=== PATIENT | male | born 1985 | race Caucasian/White ===

== ENCOUNTER 2017-11-14 21:57 | Emergency (ER) | payer SELFPAY ==
[2017-11-14 22:00] VITALS: BP 160/95; PULSE 80; RESP 18; TEMP 36.9; O2SAT 97; BMI 32.5
--- NOTE | 2017-11-14 22:08 | DI.RAD.S_ITS ---
PROCEDURE: XR ANKLE RT MIN 3V INDICATIONS: Injured right ankle sliding into base playing softball TECHNIQUE: 3 views of the ankle were acquired. COMPARISON: None. FINDINGS: Bones: No fractures or dislocations. Ankle mortise is normally aligned. Small cortical radiolucency in the medial margin of the lateral malleolus distally may represent a small erosion or subcortical cyst but does not have the appearance of an acute fracture. Soft tissues: No tibiotalar joint effusion. Achilles tendon appears normal. Prominent lateral soft tissue swelling. IMPRESSION: Lateral swelling, negative for fracture Dictated by: Michael Leblanc M.D. on 11/15/2017 at 7:58 Approved by: Michael Leblanc M.D. on 11/15/2017 at 8:02
--- NOTE | 2017-11-14 23:27 | ED.LOWEXIN ---
HPI - Extremity Injury (Lower) General Chief Complaint: Extremity Injury, Lower Stated Complaint: HURT RIGHT ANKLE Time Seen by Provider: 11/14/17 23:27 Source: patient Mode of arrival: ambulatory Limitations: no limitations History of Present Illness HPI Narrative: The patient initially rolled his right ankle yesterday, but was doing well. This evening at home he tripped over his cat, and rolled the ankle again. He now has ecchymoses, pain and swelling in the right ankle. He remains ambulatory. There is no numbness or weakness in the right foot. The right leg is otherwise normal. Related Data Home Medications Medication Instructions Recorded Confirmed ACETAMINOPHEN #0 10/30/11 sumatriptan [Imitrex] #0 11/12/15 Previous Rx's Medication Instructions Recorded ondansetron [Zofran ODT] 4 mg SUBLINGUAL Q4HP PRN #15 odt 11/12/15 oxycodone-acetaminophen [Percocet] 1 tab PO Q4HP PRN #15 tab 11/12/15 Allergies Allergy/AdvReac Type Severity Reaction Status Date / Time Penicillins [PENICILLINS] Allergy Unknown Verified 11/14/17 22:04 bee venom protein (honey bee) Allergy Anaphylaxis Verified 11/14/17 22:04 Review of Systems Constitutional Denies chills, Denies fever(s), Denies lethargy and Denies weakness Musculoskeletal Denies muscle weakness, Denies numbness and Denies tingling Integumentary/Breasts Denies rash, Denies wounds and Reports other (He has a contusion.) Neurologic Denies numbness, Denies tingling and Denies weakness [facility] Social History Smoking Status: Never smoker Exam Initial Vital Signs Initial Vital Signs: Vital Signs Temperature 98.5 F 11/14/17 22:00 Pulse Rate 80 11/14/17 22:00 Respiratory Rate 18 11/14/17 22:00 Blood Pressure 160/95 H 11/14/17 22:00 Pulse Oximetry 97 11/14/17 22:00 Skin General: no rashes or lesions noted and ecchymosis (Right ankle) Neuro General: alert, oriented x3, gait normal, no focal motor deficits and other (The right foot has normal motor and sensory findings.) Speech: speech normal Extrem General: full ROM, no clubbing, cyanosis or edema, no calf tenderness and other (Right ankle shows tenderness and edema around the right lateral malleolus. There is no palpable defect. There is no laxity in the ankle. There Is right ankle ecchymoses. The right foot is nontender. The right foot is neurovascularly intact.) Course Hospital Course: The patient was placed in a right ankle air splint by his nurse. He is ambulatory. Orders Ordered: ED Orders 11/14/17 22:08 XR ankle RT min 3V Stat Discontinued Medications Ibuprofen (Advil) 800 mg PO NOW ONE Stop: 11/14/17 23:36 Vital Signs - 8 hr 11/14/17 22:00 Temperature 98.5 F Pulse Rate 80 Respiratory Rate 18 Blood Pressure 160/95 H Pulse Oximetry 97 MDM - Extremity Injury (Lower) Imaging Data Right ankle x-ray:: My impression: No fracture seen. Discharge Plan Departure Patient Disposition: Home, Self-Care Clinical Impression: Right ankle sprain Instructions: Ankle Sprain Activity Restrictions/Additional Instructions: Advil 3 tablets every 6 hr as needed for pain. Ice the ankle frequently for the next 2 days. Use the splint as needed. Prescriptions: No Action ACETAMINOPHEN Qty: 0 RF: 0 sumatriptan [Imitrex] 5 MG spray,non-aerosol Qty: 0 RF: 0 oxycodone-acetaminophen [Percocet] 5 MG/325 MG tablet 1 tab PO Q4HP PRNQty: 15 RF: 0 ondansetron [Zofran ODT] 4 MG tablet,disintegrating 4 mg Sublingual Q4HP PRNQty: 15 RF: 0
[2017-11-14] MEDS: IBUPROFEN 400 MG TABLET 800 MG PO (23:42)
[2017-11-14 23:53] VITALS: BP 155/80; PULSE 80; RESP 12; TEMP 37.1; O2SAT 98
== END 2017-11-14 23:53 | disposition home or self-care (01) ==
PROVIDERS: Emergency Provider Emergency Medicine; Family Provider Internal Medicine
DX: S93.401A Sprain of unspecified ligament of right ankle, initial encounter (principal); W01.0XXA Fall on same level from slipping, tripping and stumbling without subsequent striking against object, initial encounter
CPT/HCPCS: 29540; 73610; 99283

== ENCOUNTER → 2018-10-06 14:00 | Outpatient (CLI) | payer OTHER, SELFPAY ==
[2018-10-06 16:04] LABS: Alanine Aminotransferase 69 IU/L (21-72); Albumin 4.9 g/dL (3.5-5.0); Albumin Globulin Ratio 1.7 (1.0-2.8); Alkaline Phosphatase 50 U/L (38-126); Aspartate Aminotransferase 31 IU/L (17-59); Bilirubin Total 1.1 mg/dL (0.2-1.3); Blood Urea Nitrogen 16 mg/dL (9-20); Calcium 10.6 mg/dL (8.4-10.2); Carbon Dioxide 27 mmol/L (22-32); Chloride 103 mmol/L (98-107); Cholesterol 205 mg/dL (140-199); Estimated Glomerular Filt Rate > 60.0 mL/min (>60); Globulin 2.9 g/dL (1.7-4.1); Glucose 92 mg/dL (70-100); HDL Cholesterol 42 mg/dL (40-60); HEMOLYSIS < 15 (0-50); LDL Cholesterol Calculated 101 mg/dL (<100); Potassium 4.2 mmol/L (3.4-5.1); Sodium 142 mmol/L (137-145); Total Protein 7.8 g/dL (6.3-8.2); Triglycerides 308 mg/dL (35-150)
== END ==
PROVIDERS: Visit Provider Internal Medicine
DX: I10 Essential (primary) hypertension (principal)
CPT/HCPCS: 36415; 80053; 80061

== ENCOUNTER → 2019-01-29 17:54 | Outpatient (CLI) | payer OTHER, SELFPAY ==
--- NOTE | 2019-01-29 17:59 | DI.MRI.S_ITS ---
PROCEDURE: MR THORACIC SPINE WO CON INDICATIONS: mid back pain TECHNIQUE: Noncontrast sagittal T1 spine echo and T2 fast spin echo, sagittal STIR, axial T1 and T2 fast spin echo through the thoracic spine. COMPARISON: None. FINDINGS: Image quality: Excellent. Alignment and Curvature: There is normal bony alignment. Bone Marrow: Marrow is of normal overall signal. No acute vertebral body compression fractures. Spinal Cord: Visualized spinal cord is normal in size and signal. Paraspinous Soft Tissues: No paravertebral masses. Miscellaneous: There is shallow central posterior disc extrusion at T9-T10 which mildly indents on the thecal sac. Without resulting in canal stenosis. There are no other disc protrusions or extrusions. There is no canal stenosis. There is no foraminal narrowing. IMPRESSION: 1. Mild central posterior disc extrusion at T9-T10 with mild indentation on the ventral cord without canal stenosis. 2. Otherwise unremarkable thoracic spine MRI. Dictated by: Adin Joseph M.D. on 01/30/2019 at 12:52 Approved by: Adin Joseph M.D. on 01/30/2019 at 12:57
== END ==
PROVIDERS: PCP Internal Medicine; Visit Provider Registered Nurse
DX: M51.14 Intervertebral disc disorders with radiculopathy, thoracic region (principal); G89.29 Other chronic pain
CPT/HCPCS: 72146

== ENCOUNTER 2019-03-22 08:47 | Outpatient (CLI) | payer OTHER, SELFPAY ==
[2019-03-22] VITALS (8 sets, daily range): BP systolic 143–153; BP diastolic 90–104; PULSE 68–86; RESP 16–18; TEMP 36.9; O2SAT 95–99
--- NOTE | 2019-03-22 08:49 | DI.RAD.S_ITS ---
PROCEDURE: PAIN C/T INTERLAMINAR INJECT INDICATIONS: RADICULOPATHY FINDINGS: Fluoroscopic spot filming was performed to verify placement of spinal needles at the T9-T10 level(s), as labeled on the films. Appropriate location(s) of the needle tip(s) was confirmed by injection of iodinated contrast. IMPRESSION: Fluoroscopy for pain management. Dictated by: Brian Zhao M.D. on 03/22/2019 at 11:28 Approved by: Brian Zhao M.D. on 03/22/2019 at 11:28
--- NOTE | 2019-03-22 08:49 | DI.RAD.S_ITS ---
PROCEDURE: XR THORACIC SPINE 3V INDICATIONS: mid back pain TECHNIQUE: 3 views of the thoracic spine were acquired. COMPARISON: [facility], MR, MR THORACIC SPINE WO CON, 01/29/2019, 18:22. FINDINGS: Bones: No fractures or dislocations. No suspicious bony lesions. Mild degenerative disease at T8-T9, T9-T10, T10-T11 and T11-T12. 12 pairs of ribs are noted, and appear intact where visualized. Old right 11th rib fracture is noted. Soft tissues: No paravertebral stripe thickening. IMPRESSION: Mild degenerative disc disease. Dictated by: Brian Zhao M.D. on 03/22/2019 at 11:39 Approved by: Brian Zhao M.D. on 03/22/2019 at 11:41
[2019-03-22] MEDS: fentaNYL 100 MCG/2 ML INJ 50 MCG IV (09:28)
[2019-03-22] MEDS: MIDAZOLAM 5 MG/5 ML VIAL IV (09:28)
[2019-03-22] MEDS: LIDOCAINE 1% 20 ML 5 ML INJ (09:33)
[2019-03-22] MEDS: IOPAMIDOL 15 ML VIAL 3 ML INJ (09:33)
[2019-03-22] MEDS: DEXAMETHASONE 10 MG/ML VIAL 30 MG INJ (09:34)
--- NOTE | 2019-03-22 09:44 | PC.NURSE ---
ASSISTING PT OFF TABLE AND TRANSPORTING TO POST PROC AREA IN STABLE CONDITION. PASSING RN CARE OF PT OFF TO FRANKI Powell RN. VERSED AND FENTANYL PREPARED AND ADMINISTERED BY THIS RN. ALL OTHER MEDS PREPARED AND ADMINISTERED BY DR. MAHAJAN.
--- NOTE | 2019-03-22 09:48 | P.PCN_ITS ---
Procedures Date/Time Date of procedure: 03/22/19 Time of procedure: 09:49 General Procedure description: Preop diagnosis: Thoracic stenosis with HNP Postprocedure diagnosis: Thoracic stenosis with HNP Physician: Miguel Oakes D.O. Indications: Pilo is referred by Dr. Enriquez for treatment of thoracic DDD/DJD with radiculopathy Description of procedure: Fluoroscopic guided, contrast controlled T9/10 translaminar epidural steroid inj ection with conscious sedation. Following review of allergy review potential side effects and complications, including, but not necessarily limited to, infection, allergic reaction, local tissue breakdown, temporary as well as permanent nerve injury, stroke, paralysis and possible , the patient indicated that they understood and agreed to proceed. An informed consent document was signed by the patient, witnessed by the nurse, and placed in the patient's chart. Additionally other treatment options including modalities, medications and physical therapy were reviewed with the patient. After review of previous anaesthesic history and IV conscious sedation the patient was deemed safe to proceed with todays procedure with IV conscious sedation as ASA class II designation. Safety time-out was performed to confirm patient ID, procedure to be performed and site of procedure. IV sedation was accomplished with a combination of 2mg of Versed and 50mcg of Fentanyl administered by the RN after DO order, titrated to patient comfort during the course of the procedure while the patient remained responsive to all verbal commands In the prone position, following sterile prep and drape of the thoracic region the T9/10 translaminar space was identified fluoroscopically. The skin was anesthetized via 25 gauge 20 mm sheath with 1% lidocaine solution. At this point a 20 gauge epidural needle was atraumatically introduced and advanced under fluoroscopic guidance into the region of the T9/10 translaminar space depth was confirmed on lateral view. Radiographic data, including multiple fluoroscopic views of the thoracic spine, reveals spinal needle at the T9/10 translaminar space. Lateral views then showed the placement of the needle in the epidural space. Subsequent view show contrast material flowing superiorly and inferiorly in the epidural space. No vascular or intrathecal uptake is observed. At this point using loss of resistance technique with saline and the epidural space was entered. This was confirmed followed negative aspiration and injection of approximately 1.5 cc of Isovue 200 showed excellent epidural flow without vascular or intrathecal uptake. At this point, 1 cc of 1% lidocaine solution was admitted as a test dose and the patient was observed for an appropriate period of time without signs or symptoms of complications, including abdominal pain, shortness of breath, bilateral upper and lower extremity weakness, nausea and vomiting, prior to steroid injection. Subsequently, 3cc or 30mg of dexamethasone was then injected without incident. The patient tolerated the procedure well without signs of complications and subsequently was transferred to the recovery room for further monitoring. The patient was then transferred to the recovery area with their observed for an appropriate time after the injection. Patient reported a VAS score of 7 prior to the procedure and postprocedure VAS of 2. Total fluoroscopy time: 56.3 sec Total conscious sedation time: 24 min Miguel Oakes D.O. Complications: none
--- NOTE | 2019-03-22 10:24 | PC.NURSE ---
Post procedure discharge note: Patient arrived at 0949. Handoff report received from Jami Noel RN. Patient awake and alert. Able to transfer from wheelchair to recliner independently. Discharge instructions reviewed with good understanding. Discharged to home with significant other. Ambulated to car at 1007
== END 2019-03-22 10:07 | disposition home or self-care (01) ==
LOC: RAD 08:48
PROVIDERS: PCP Internal Medicine; Visit Provider Physical Medicine & Rehabilitation
DX: M51.14 Intervertebral disc disorders with radiculopathy, thoracic region (principal); M48.04 Spinal stenosis, thoracic region; M47.24 Other spondylosis with radiculopathy, thoracic region
CPT/HCPCS: 62321; 72072; 99152; J1100; J2250; J3010

== ENCOUNTER → 2019-04-05 11:08 | Outpatient (CLI) | payer OTHER, SELFPAY ==
[2019-04-05 12:32] LABS: Erythrocyte Sedimentation Rate 4 MM/HR (0-15)
[2019-04-05 12:40] LABS: C-Reactive Protein Quant < 0.5 mg/dL (<1.0)
[2019-04-07 13:45] LABS: HLA B27 NEGATIVE (Negative)
== END ==
PROVIDERS: PCP Internal Medicine; Visit Provider Registered Nurse
DX: M54.14 Radiculopathy, thoracic region (principal); G89.29 Other chronic pain; M54.6 Pain in thoracic spine
CPT/HCPCS: 36415; 81374; 85651; 86140

== ENCOUNTER → 2020-03-17 14:37 | Outpatient (CLI) | payer OTHER, SELFPAY ==
[2020-03-17 17:05] LABS: COVID19 -Nasal RAPID POSITIVE (Negative)
== END ==
PROVIDERS: PCP Family Medicine; Visit Provider Physician Assistant
DX: U07.1 COVID-19 (principal)
CPT/HCPCS: 87635

== ENCOUNTER → 2020-04-29 14:55 | Outpatient (CLI) | payer OTHER, SELFPAY ==
[2020-04-29 15:57] LABS: COVID19 -Nasal RAPID Negative (Negative)
== END ==
PROVIDERS: PCP Family Medicine; Referring Provider Physical Medicine & Rehabilitation; Visit Provider Physical Medicine & Rehabilitation
DX: Z20.822 Contact with and (suspected) exposure to COVID-19 (principal)
CPT/HCPCS: 87635; C9803

== ENCOUNTER 2020-05-01 07:33 | Outpatient (CLI) | payer OTHER, SELFPAY ==
[2020-05-01] VITALS (9 sets, daily range): BP systolic 143–161; BP diastolic 80–101; PULSE 71–85; RESP 10–24; TEMP 36.2; O2SAT 92–99
--- NOTE | 2020-05-01 07:57 | DI.RAD.S_ITS ---
PROCEDURE: PAIN C/T TRANFORAMINAL INJECT INDICATIONS: SPONDYLOSIS COMPARISON: [facility], , PAIN C/T INTERLAMINAR INJECT, 03/22/2019, 9:28. FINDINGS: Fluoroscopic spot filming was performed to verify placement of a spinal needle at the T9-T10 level, as labeled on the films. Appropriate location of the needle tip was confirmed by injection of iodinated contrast. IMPRESSION: Intraprocedural examination within normal limits. Dictated by: Grover Calloway M.D. on 05/01/2020 at 10:26 Approved by: Grover Calloway M.D. on 05/01/2020 at 10:26
[2020-05-01] MEDS: fentaNYL 100 MCG/2 ML INJ 50 MCG IV (08:25)
[2020-05-01] MEDS: MIDAZOLAM 5 MG/5 ML VIAL IV (08:25)
[2020-05-01] MEDS: BUPIVACAINE 0.25% (PF) VIAL 2 ML INJ (08:29)
[2020-05-01] MEDS: DEXAMETHASONE 10 MG/ML VIAL 30 MG INJ (08:31)
[2020-05-01] MEDS: IOPAMIDOL 15 ML VIAL 3 ML INJ (08:31)
--- NOTE | 2020-05-01 08:41 | P.PCN_ITS ---
Date/Time/Diagnoses Date of procedure: 05/01/20 Time of procedure: 08:41 Pre-procedure diagnosis: 1. FORAMINAL STENOSIS WITH LE SYMPTOMS Post-procedure diagnosis: same Procedure Notes Procedure: 1. FLUOROSCOPICALLY GUIDED CONTRAST CONTROLLED TRANSFORAMINAL EPIDURAL STEROID INJECTION - LEFT T9/T10 TFESI Indications: Pilo is referred by Dr. Joyner for treatment of Foraminal Stenosis with Right thoracic Symptoms Physician: iMguel Oakes Total Fluoroscopy time (seconds): 13 Total sedation minutes: 11 Complications: none Procedure in detail & Post-procedure care: FINDINGS Foraminal Nerve Root Compression secondary to disc disease and facet hypertrophy DESCRIPTION OF PROCEDURE Following review of allergy and review of potential side effects and complications, including, but not necessarily limited to, infection, allergic reaction, local tissue breakdown, stroke, temporary or permanent nerve injury, paralysis, and possible , the patient indicated that the patient understood and agreed to proceed. An informed consent document was signed by the patient, witnessed by a nurse, and placed in the patient's chart. Additionally, other treatment options including medications, modalities, and physical therapy were reviewed with the patient. After review of previous anaesthesic history and IV conscious sedation the patient was deemed safe to proceed with today?s procedure with IV conscious sedation as ASA class II designation. Safety time-out was performed to confirm patient ID, procedure to be performed and site of procedure. IV sedation was accomplished with a combination of 4mg of Versed and 50mcg of Fentanyl was administered by the RN after DO order, titrated to patient comfort during the course of the procedure while the patient remained responsive to all verbal commands In the prone position following sterile prep and drape of the lumbar region, the right T8-9 posterior neuroforamen was identified fluoroscopically. The skin was anesthetized via a 25-gauge 1.5-inch needle with 1% lidocaine solution. At this point, a 25-gauge 3.5-inch spinal needle was atraumatically introduced and advanced under fluoroscopic guidance through the posterior left T9/T10 neuroforamen to approximately the anterior aspect of the canal. Depth was confirmed on lateral view. Following negative aspiration, injection of approximately 1.5cc of Isovue 200 under live fluoroscopy in the AP view confirmed excellent flow along the nerve root, into the epidural space without vascular or intrathecal uptake observed Radiological data, including multiple fluoroscopic views reveal the needle placement in the left T9/T10 posterior neuroforamen. Subsequent views show flow of contrast material flowing superiorly and inferiorly along the nerve root confirming epidural flow. Subsequently, a test dose of 1.5cc of 1% lidocaine solution was administered and patient was observed for signs or symptoms of complications, including abdominal pain, shortness of breath, bilateral upper or lower extremity weakness, nausea and vomiting, prior to steroid injection. At this point, a total of 3cc or 30mg of dexamethasone was injected without incident. The procedure tolerated the procedure well without signs or symptoms of complications prior to transfer to the recovery area continued monitoring without incident. The patient was then transferred to the recovery area where they were observed for an appropriate time after the injection. The patient reported a VAS score of 7 prior to the procedure and a post- procedure VAS of 0. POST OP INSTRUCTIONS The patient was provided a Pain Log to continue to record their response to the target-specific procedure prior to follow-up visit with their referring physician. Additionally, specific post-injection care instructions and a contact number to our office were provided if concerns arise regarding possible complications associated with the procedure are suspected.
== END 2020-05-01 09:04 | disposition home or self-care (01) ==
PROVIDERS: PCP Family Medicine; Referring Provider Family Medicine; Visit Provider Physical Medicine & Rehabilitation
DX: M51.24 Other intervertebral disc displacement, thoracic region (principal); M47.814 Spondylosis without myelopathy or radiculopathy, thoracic region
CPT/HCPCS: 64479; 99152; J1100; J2250; J3010

== ENCOUNTER → 2020-05-26 08:22 | Outpatient (CLI) | payer OTHER, SELFPAY ==
--- NOTE | 2020-05-26 08:24 | DI.RAD.S_ITS ---
PROCEDURE: XR THORACIC SPINE 3V INDICATIONS: THORACIC PAIN TECHNIQUE: 3 views of the thoracic spine were acquired. COMPARISON: [facility], CR, XR THORACIC SPINE 3V, 03/22/2019, 9:09. FINDINGS: Bones: No fractures or dislocations. No suspicious bony lesions. 12 pairs of ribs are noted, and appear intact where visualized. There is only a small degree of degenerative disc height reduction along the thoracic spine best seen at the middle 3rd. No prior compression fracture suspected. Soft tissues: No paravertebral stripe thickening. IMPRESSION: Mild degenerative disc disease without prior compression fracture, involving the thoracic spine. No subluxation seen. Dictated by: Tj De M.D. on 05/26/2020 at 9:04 Approved by: Tj De M.D. on 05/26/2020 at 9:05
== END ==
PROVIDERS: PCP Family Medicine; Referring Provider Physical Medicine & Rehabilitation; Visit Provider Physical Medicine & Rehabilitation
DX: M51.14 Intervertebral disc disorders with radiculopathy, thoracic region (principal); G89.29 Other chronic pain
CPT/HCPCS: 72072

== ENCOUNTER → 2020-06-27 06:42 | Outpatient (CLI) | payer OTHER, SELFPAY ==
--- NOTE | 2020-06-27 06:42 | DI.MRI.S_ITS ---
PROCEDURE: MR LUMBAR SPINE WO CON INDICATIONS: LUMBAR RADICULOPATHY TECHNIQUE: Noncontrast sagittal T1 spin echo and T2 fast echo, sagittal STIR, axial T1 and T2 fast spin echo through the lumbar spine. In cases with scoliosis, additional coronal T2 fast spin echo may be performed. COMPARISON: None. FINDINGS: Image quality: Excellent. Alignment and Curvature: There is normal bony alignment. Bone Marrow: No fracture. Multilevel degenerative endplate sclerosis and spurring. Diffuse facet arthropathy. Spinal Cord: Conus medullaris terminates at the L1-L2 level. Visualized cord demonstrates normal signal and size. Paraspinous Soft Tissues: No paravertebral masses. Subcentimeter Tarlov cyst seen at the S2 level of the sacrum. T12-L1: Normal appearance. L1-L2: Normal appearance. L2-L3: Normal appearance. L3-L4: Normal appearance. L4-L5: No canal foraminal stenosis. Minimal bilateral foraminal narrowing. L5-S1: No definite canal stenosis. Mild bilateral foraminal narrowing with questionable nerve root compression. IMPRESSION: Overall, no high-grade canal stenosis. Low-grade bilateral foraminal narrowing as above . Dictated by: José Miguel Friedman M.D. on 06/27/2020 at 8:59 Approved by: José Miguel Friedman M.D. on 06/27/2020 at 9:08
== END ==
PROVIDERS: PCP Family Medicine; Referring Provider Physical Medicine & Rehabilitation; Visit Provider Physical Medicine & Rehabilitation
DX: M54.16 Radiculopathy, lumbar region (principal)
CPT/HCPCS: 72148

== ENCOUNTER → 2020-07-24 09:42 | Outpatient (CLI) | payer OTHER, SELFPAY ==
[2020-07-24] MEDS: COVID-19 VACC #1, MRNA(MOD) 100 MCG/0.5 ML VIAL IM (09:47)
== END ==
PROVIDERS: PCP Family Medicine; Visit Provider Internal Medicine
DX: Z23 Encounter for immunization (principal)
CPT/HCPCS: 0011A; 91301

== ENCOUNTER → 2020-08-05 08:46 | Outpatient (CLI) | payer OTHER, SELFPAY ==
[2020-08-05 14:59] LABS: COVID19 -Nasal RAPID Negative (Negative)
== END ==
PROVIDERS: PCP Family Medicine; Visit Provider Physical Medicine & Rehabilitation
DX: Z20.822 Contact with and (suspected) exposure to COVID-19 (principal)
CPT/HCPCS: 87635; C9803

== ENCOUNTER 2020-08-07 09:18 | Outpatient (CLI) | payer OTHER, SELFPAY ==
[2020-08-07] VITALS (8 sets, daily range): BP systolic 152–181; BP diastolic 76–110; PULSE 14–98; RESP 14–20; TEMP 36.4; O2SAT 93–99
--- NOTE | 2020-08-07 09:21 | DI.RAD.S_ITS ---
PROCEDURE: PAIN C/T INTERLAMINAR INJECT INDICATIONS: SPONDYLOSIS COMPARISON: [facility], , PAIN C/T INTERLAMINAR INJECT, 03/22/2019, 9:28. FINDINGS: Fluoroscopic spot filming was performed to verify placement of spinal needles at the T9-T10 level(s), as labeled on the films. Appropriate location(s) of the needle tip(s) was confirmed by injection of iodinated contrast. IMPRESSION: Successful needle tip localization for dorsal interlaminar epidural steroid injection at the T9-T10 level. Dictated by: Tj De M.D. on 08/12/2020 at 8:22 Approved by: Tj De M.D. on 08/12/2020 at 8:27
[2020-08-07] MEDS: fentaNYL 100 MCG/2 ML INJ 50 MCG IV (10:00)
[2020-08-07] MEDS: MIDAZOLAM 5 MG/5 ML VIAL IV (10:05)
[2020-08-07] MEDS: IOPAMIDOL 15 ML VIAL 3 ML INJ (10:07)
[2020-08-07] MEDS: DEXAMETHASONE 10 MG/ML VIAL 30 MG INJ (10:07)
[2020-08-07] MEDS: BUPIVACAINE 0.25% (PF) VIAL 2 ML INJ (10:08)
--- NOTE | 2020-08-07 10:18 | PM.PROC.IR.1 ---
Date/Time/Diagnoses Date of procedure: 08/07/20 Time of procedure: 10:18 Pre-procedure diagnosis: Thoracic stenosis with HNP Post-procedure diagnosis: same Procedure Notes Procedure: Fluoroscopic guided, contrast controlled T9/10 translaminar epidural steroid injection with conscious sedation. Indications: Pilo is referred by Dr. Joyner for treatment of thoracic DDD/DJD with radiculopathy Physician: Miguel Oakes Total Fluoroscopy time (seconds): 16 Total sedation minutes: 14 Complications: none Procedure in detail & Post-procedure care: DESCRIPTION OF PROCEDURE Fluoroscopic guided, contrast controlled T9/10 translaminar epidural steroid injection with conscious sedation. Following review of allergy review potential side effects and complications, including, but not necessarily limited to, infection, allergic reaction, local tissue breakdown, temporary as well as permanent nerve injury, stroke, paralysis and possible , the patient indicated that they understood and agreed to proceed. An informed consent document was signed by the patient, witnessed by the nurse, and placed in the patient's chart. Additionally other treatment options including modalities, medications and physical therapy were reviewed with the patient. After review of previous anaesthesic history and IV conscious sedation the patient was deemed safe to proceed with today's procedure with IV conscious sedation as ASA class II designation. Safety time-out was performed to confirm patient ID, procedure to be performed and site of procedure. IV sedation was accomplished with a combination of 5mg of Versed and 50mcg of Fentanyl administered by the RN after DO order, titrated to patient comfort during the course of the procedure while the patient remained responsive to all verbal commands In the prone position, following sterile prep and drape of the thoracic region the T9/10 translaminar space was identified fluoroscopically. The skin was anesthetized via 25 gauge 1.5inch needle with 1% lidocaine solution. At this point a 22gauge epidural needle was atraumatically introduced and advanced under fluoroscopic guidance into the region of the T9/10 translaminar space depth was confirmed on lateral view. Radiographic data, including multiple fluoroscopic views of the thoracic spine, reveals spinal needle at the T9/10 translaminar space. Lateral views then showed the placement of the needle in the epidural space. Subsequent view show contrast material flowing superiorly and inferiorly in the epidural space. No vascular or intrathecal uptake is observed. At this point using loss of resistance technique with saline and the epidural space was entered. This was confirmed followed negative aspiration and injection of approximately 1.5cc of Isovue 200 showed excellent epidural flow without vascular or intrathecal uptake. At this point, 1 cc of 1% lidocaine solution was admitted as a test dose and the patient was observed for an appropriate period of time without signs or symptoms of complications, including abdominal pain, shortness of breath, bilateral upper and lower extremity weakness, nausea and vomiting, prior to steroid injection. Subsequently, 3cc or 30mg of dexamethasone was then injected without incident. The patient tolerated the procedure well without signs of complications and subsequently was transferred to the recovery room for further monitoring. The patient was then transferred to the recovery area with their observed for an appropriate time after the injection. Patient reported a VAS score of 7 prior to the procedure and post-procedure VAS of 2.
== END 2020-08-07 10:36 | disposition home or self-care (01) ==
LOC: RAD 09:20
PROVIDERS: PCP Family Medicine; Referring Provider Physical Medicine & Rehabilitation; Visit Provider Physical Medicine & Rehabilitation
DX: M48.04 Spinal stenosis, thoracic region (principal); M51.14 Intervertebral disc disorders with radiculopathy, thoracic region; M47.24 Other spondylosis with radiculopathy, thoracic region
CPT/HCPCS: 62321; 99152; J1100; J2250; J3010

== ENCOUNTER → 2020-08-21 08:02 | Outpatient (CLI) | payer OTHER, SELFPAY ==
[2020-08-21] MEDS: COVID-19 VACC #2, MRNA(MOD) 100 MCG/0.5 ML VIAL IM (08:09)
== END ==
PROVIDERS: PCP Family Medicine; Visit Provider Internal Medicine
DX: Z23 Encounter for immunization (principal)
CPT/HCPCS: 0012A; 91301

== ENCOUNTER → 2020-11-03 08:06 | Outpatient (CLI) | payer OTHER, SELFPAY ==
[2020-11-03 12:38] LABS: COVID19 -Nasal RAPID Negative (Negative)
== END ==
PROVIDERS: PCP Family Medicine; Visit Provider Physical Medicine & Rehabilitation
DX: Z20.822 Contact with and (suspected) exposure to COVID-19 (principal)
CPT/HCPCS: 87635; C9803

== ENCOUNTER 2020-11-04 08:47 | Outpatient (CLI) | payer OTHER, SELFPAY ==
[2020-11-04] VITALS (9 sets, daily range): BP systolic 143–157; BP diastolic 82–98; PULSE 70–88; RESP 13–19; TEMP 36.6; O2SAT 96–98
--- NOTE | 2020-11-04 08:48 | DI.RAD.S_ITS ---
PROCEDURE: PAIN C/T FACET INJ/BLK 1ST L INDICATIONS: THORACIC PAIN COMPARISON: [facility], MR, MR LUMBAR SPINE WO CON, 06/27/2020, 7:07. [facility], CR, XR THORACIC SPINE 3V, 05/26/2020, 8:33. FINDINGS: Fluoroscopic spot filming was performed to verify placement of spinal needles at the right T9, T10 and T11 level(s), as labeled on the films. Appropriate location(s) of the needle tip(s) was confirmed by injection of iodinated contrast. IMPRESSION: Fluoroscopy for pain management. Dictated by: Brian Zhao M.D. on 11/04/2020 at 14:58 Approved by: Brian Zhao M.D. on 11/04/2020 at 15:13
[2020-11-04] MEDS: MIDAZOLAM 5 MG/5 ML VIAL IV (09:18)
[2020-11-04] MEDS: fentaNYL 100 MCG/2 ML INJ 50 MCG IV (09:18)
[2020-11-04] MEDS: BUPIVACAINE 0.5% (PF) VIAL 5 ML SUBCUT (09:26)
[2020-11-04] MEDS: DEXAMETHASONE 10 MG/ML VIAL 30 MG INJ (09:27)
[2020-11-04] MEDS: IOPAMIDOL 15 ML VIAL 3 ML INJ (09:27)
--- NOTE | 2020-11-04 09:45 | P.PCN_ITS ---
Date/Time/Diagnoses Date of procedure: 11/04/20 Time of procedure: 09:45 Pre-procedure diagnosis: 1. FACET ARTHROPATHY 2. AXIAL NECK PAIN Post-procedure diagnosis: same Procedure Notes Procedure: 1. FLUOROSCOPICALLY GUIDED, CONTRAST-CONTROLLED RIGHT C5/6 AND C6/7 FACET JOINT INJECTIONS WITH CONSCIOUS SEDATION. Indications: Pilo is referred by Dr. Joyner for treatment of Thoracic Pain Physician: Miguel Oakes Total Fluoroscopy time (seconds): 12 Total sedation minutes: 17 Complications: none Procedure in detail & Post-procedure care: DESCRIPTION OF PROCEDURE Fluoroscopically guided, contrast-controlled right T9, T10 and T11 costovertebral joint injections with conscious sedation. Following review of allergy and review of potential side effects and complications, including, but not necessarily limited to, infection, allergic reaction, local tissue breakdown, stroke, temporary or permanent nerve injury and paralysis, the patient indicated that the patient understood and agreed to proceed. An informed consent document was signed by the patient, witnessed by a nurse, and placed in the patient's chart. Additionally, other treatment options including medications, modalities, and physical therapy were reviewed with the patient. After review of previous anaesthesic history and IV conscious sedation the patient was deemed safe to proceed with today?s procedure with IV conscious sedation as ASA class II designation. Safety time-out was performed to confirm patient ID, procedure to be performed and site of procedure. IV sedation was accomplished with a combination of 3mg of Versed and 50mcg of Fentanyl was administered by the RN after DO order, titrated to patient comfort during the course of the procedure while the patient remained responsive to all verbal commands. In the prone position, following sterile prep and drape of the cervical spine region, the posterior aspect of the right T9, T10 and T11 joints were identified fluoroscopically. The skin was anesthetized via a 25-gauge 1.5-inch needle with 1% lidocaine solution into the corresponding costovertebral joints. At this point, a 25-gauge 2.5-inch spinal needle was atraumatically introduced and advanced under fluoroscopic guidance into the corresponding joints. Following negative aspiration, injections of approximately 0.2-cc of Isovue 200 confirmed interarticular placement without vascular uptake. At this point, a total of 1 cc including 0.5 cc or 5 mg of dexamethasone combined with 0.5 cc of 1% lidocaine solution was injected without complication into each of the corresponding joints. The procedure tolerated the procedure well without signs or symptoms of complications prior to transfer to the recovery area continued monitoring without incident. The patient was then transferred to the recovery area where they were observed for an appropriate period of time after the injection. The patient reported a VAS score of 7 prior to the procedure and a post- procedure VAS of 0. POST OP INSTRUCTIONS They were provided a Pain Log to continue to record their response to the target-specific procedure prior to their follow-up visit with their referring physician. Additionally, specific post-injection care instructions and a contact number to our office were provided if concerns arise regarding possible complications associated with the procedure are suspected.
== END 2020-11-04 09:52 | disposition home or self-care (01) ==
LOC: RAD 08:47
PROVIDERS: PCP Family Medicine; Referring Provider Physical Medicine & Rehabilitation; Visit Provider Physical Medicine & Rehabilitation
DX: M47.814 Spondylosis without myelopathy or radiculopathy, thoracic region (principal); M54.6 Pain in thoracic spine
CPT/HCPCS: 64490; 64491; 64492; 99152; J1100; J2250; J3010

== ENCOUNTER → 2021-02-23 10:15 | Outpatient (CLI) | payer OTHER, SELFPAY ==
[2021-02-23 15:04] LABS: COVID19 -Nasal RAPID Negative (Negative)
== END ==
PROVIDERS: PCP Family Medicine; Referring Provider Physical Medicine & Rehabilitation; Visit Provider Physical Medicine & Rehabilitation
DX: Z20.822 Contact with and (suspected) exposure to COVID-19 (principal)
CPT/HCPCS: 87635; C9803

== ENCOUNTER 2021-02-24 08:48 | Outpatient (CLI) | payer OTHER, SELFPAY ==
[2021-02-24] VITALS (8 sets, daily range): BP systolic 136–182; BP diastolic 100–124; PULSE 80–94; RESP 9–114; TEMP 36.1; O2SAT 95–100
--- NOTE | 2021-02-24 08:50 | DI.RAD.S_ITS ---
PROCEDURE: PAIN C/T FACET INJ/BLK 1ST L INDICATIONS: SPONDYLOSIS COMPARISON: [facility], , PAIN C/T FACET INJ/BLK 1ST L, 11/04/2020, 9:25. FINDINGS: Fluoroscopic spot filming was performed to verify placement of spinal needles at the right T9-T10, T10-T11 and T11-T12 level(s), as labeled on the films. Appropriate location(s) of the needle tip(s) was confirmed by injection of iodinated contrast. IMPRESSION: Access needles positioned for right T9, T10 and T11 medial branch block. Dictated by: Magali Steele MD, PhD on 02/24/2021 at 9:56 Approved by: Magali Steele MD, PhD on 02/24/2021 at 9:58
[2021-02-24] MEDS: MIDAZOLAM 5 MG/5 ML VIAL IV (09:33)
[2021-02-24] MEDS: fentaNYL 100 MCG/2 ML INJ 50 MCG IV (09:33)
[2021-02-24] MEDS: IOPAMIDOL 15 ML VIAL 3 ML INJ (09:41)
[2021-02-24] MEDS: DEXAMETHASONE 10 MG/ML VIAL 30 MG INJ (09:42)
--- NOTE | 2021-02-24 09:45 | P.PCN_ITS ---
Date/Time/Diagnoses Date of procedure: 02/24/21 Time of procedure: 09:45 Procedure Notes Procedure: Post-procedure diagnosis:?same Procedure Notes Procedure: 1.? FLUOROSCOPICALLY GUIDED, CONTRAST-CONTROLLED RIGHT T9, T10 and T11 FACET JOINT INJECTIONS WITH CONSCIOUS SEDATION. Indications: Pilo is referred by Dr. Joyner for treatment of Thoracic Pain Physician:?Miguel Oakes Complications:?none Procedure in detail & Post-procedure care: DESCRIPTION OF PROCEDURE Fluoroscopically guided, contrast-controlled right T9, T10 and T11 facet joint injections with conscious sedation. Following review of allergy and review of potential side effects and complications, including, but not necessarily limited to, infection, allergic reaction, local tissue breakdown, stroke, temporary or permanent nerve injury and paralysis, the patient indicated that the patient understood and agreed to proceed.? An informed consent document was signed by the patient, witnessed by a nurse, and placed in the patient's chart.? Additionally, other treatment options including medications, modalities, and physical therapy were reviewed with the patient.? After review of previous anaesthesic history and IV conscious sedation the nader ent was deemed safe to proceed with today?s procedure with IV conscious sedation as ASA class II designation. Safety time-out was performed to confirm patient ID, procedure to be performed and site of procedure. IV sedation was accomplished with a combination of 3mg of Versed and 50mcg of Fentanyl was administered by the RN after DO order, titrated to patient comfort during the course of the procedure while the patient remained responsive to all verbal commands. In the prone position, following sterile prep and drape of the cervical spine region, the posterior aspect of the right T9, T10 and T11 joints were identified fluoroscopically.? The skin was anesthetized via a 25-gauge 1.5-inch needle with 1% lidocaine solution into the corresponding costovertebral joints.? At this point, a 25-gauge 2.5-inch spinal needle was atraumatically introduced and advanced under fluoroscopic guidance into the corresponding joints.? Following negative aspiration, injections of approximately 0.2-cc of Isovue 200 confirmed interarticular placement without vascular uptake.? At this point, a total of 1 cc including 0.5 cc or 5 mg of dexamethasone combined with 0.5 cc of 1% lidocaine solution was injected without complication into each of the corresponding joints.? The procedure tolerated the procedure well without signs or symptoms of complications prior to transfer to the recovery area continued monitoring without incident.? The patient was then transferred to the recovery area where they were observed for an appropriate period of time after the injection.? The patient reported a VAS score of 7 prior to the procedure and a post- procedure VAS of 0.? POST OP INSTRUCTIONS They were provided a Pain Log to continue to record their response to the target-specific procedure prior to their follow-up visit with their referring physician.? Additionally, specific post-injection care instructions and a contact number to our office were provided if concerns arise regarding possible complications associated with the procedure are suspected. Total Fluoroscopy time (seconds): 8 Total sedation minutes: 6
[2021-02-24] MEDS: BUPIVACAINE 0.25% (PF) VIAL 2 ML INJ (09:47)
== END 2021-02-24 10:08 | disposition home or self-care (01) ==
LOC: RAD 08:49
PROVIDERS: PCP Family Medicine; Referring Provider Physical Medicine & Rehabilitation; Visit Provider Physical Medicine & Rehabilitation
DX: S22.49XA Multiple fractures of ribs, unspecified side, initial encounter for closed fracture (principal); M54.6 Pain in thoracic spine; G89.29 Other chronic pain
CPT/HCPCS: 64490; 64491

== ENCOUNTER 2021-10-05 10:15 | Outpatient (RCR) | payer OTHER, SELFPAY ==
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
--- NOTE | 2021-08-17 10:20 | PT-OP ANOTE ---
cancelled due to running a fever
--- NOTE | 2021-08-24 09:41 | PT.OTN ---
Current Diagnoses Spondylosis without myelopathy or radiculopathy, thoracic region (08/24/21) Other intervertebral disc displacement, thoracic region (08/24/21) Multiple fractures of ribs, left side, sequela (08/24/21) Physical Therapy Treatment Note PT-OP-A Visit Information Start: 07/13/21 16:15 Freq: Status: Active Protocol: Document 08/24/21 09:31 [facility] (Rec: 08/25/21 09:40 [facility] [id number]) Out-Patient Physical Therapy Visit Information Visit Information Visit Type Aquatic Treatment Note Visit Start Time 10:15 Visit Stop Time 11:00 Total Visit Minutes 45 Visit Number 2 PT-OP-B Current Condition Start: 07/13/21 16:15 Freq: Status: Active Protocol: Document 07/14/21 08:14 [facility] (Rec: 07/14/21 09:05 [facility] [id number]) Current Condition History of Current Condition Onset Date January 2017 Current Complaints neck pain, back pain History of Current Condition 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 Since then has had severe chronic pain. Prior Treatments and Tests MRI T8-T11 disc extrusions. Has done PT late 2016, couldn' t tolerate what was being done ; ex, ultrasound, inversion. [address] Oakes; 1 was very helpful, insurance has denied nerve ablation before trial of PT for 6 visits. 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 Has not done aquatic therapy. Lays on side to sleep, sleep interrupted. Treatment Goals Patient/Caregiver Goals Decrease pain, be able to improve his activity tolerance . Prior Functional Status Baseline Function- ADL's Independent Baseline Function- Mobility Independent Baseline Function- Gait INDEP Baseline Function- Work/School Indeb with no restrictions PT-OP-C Subjective Start: 07/13/21 16:15 Freq: Status: Active Protocol: Document 08/24/21 09:31 [facility] (Rec: 08/25/21 09:40 [facility] [id number]) OP-PT Subjective Patient Comments Patient Comments Hopeful aquatic therapy will be helpful. PT-OP-H Neuro Start: 07/13/21 16:15 Freq: Status: Active Protocol: Document 07/14/21 08:14 [facility] (Rec: 07/15/21 17:28 [facility] [id number]) Sensation Evaluation Gross Sensation Gross Sensation WNL PT-OP-J Posture/Palpation/Skin Start: 07/13/21 16:15 Freq: Status: Active Protocol: Document 07/14/21 08:14 [facility] (Rec: 07/15/21 17:28 [facility] [id number]) Posture Evaluation Position Standing Head/C-Spine Posture Forward Head T-Spine Posture Increased Kyphosis L-Spine Posture Increased Lordosis Shoulder Posture (L) Rounded,(R) Rounded Pelvis Posture Anteriorly Tilted Hip Posture (L) Externally Rotated,(R) Externally Rotated Palpation Assessment Location One Palpation Location thoracolumbar spine Palpation Findings Soft Tissue Tightness,Muscle Guarding,Tenderness PT-OP-K Range of Motion Start: 07/13/21 16:15 Freq: Status: Active Protocol: Document 07/14/21 08:14 [facility] (Rec: 07/15/21 17:28 [facility] [id number]) Lumbar Spine Range of Motion Lumbar Spine Active Flexion 20 Extension 10 Rotation Left 30 Rotation Right 25 Lateral Flexion Left 25 Lateral Flexion Right 20 ROM Limitations Soft Tissue Tightness,Pain Hip Goniometric Range of Motion Hip federico Hip ROM WFL Yes PT-OP-M Strength Start: 07/13/21 16:15 Freq: Status: Active Protocol: Document 07/14/21 08:14 [facility] (Rec: 07/15/21 17:28 [facility] [id number]) Hip Strength Hip Manual Muscle Testing federico Flexion (L2) 4- Good- Extension (S1) 4- Good- Abduction 4- Good- Adduction 4- Good- External Rotation 4- Good- Internal Rotation 4- Good- Comments pain with resistance Knee Strength Knee Manual Muscle Testing federico Flexion (S2) 5 Normal Extension (L3) 5 Normal PT-OP-Q Treatments Start: 07/13/21 16:15 Freq: Status: Active Protocol: Document 07/14/21 08:14 [facility] (Rec: 07/15/21 17:28 [facility] [id number]) Self-Care/Home Management Treatment Education Patient Education Home Exercise Program,Pain Management,Posture Other Education bed positioning PT-OP-S Aquatic Treatment Start: 07/13/21 16:15 Freq: Status: Active Protocol: Document 08/24/21 09:31 [facility] (Rec: 08/25/21 09:40 [facility] [id number]) Aquatics Treatment Pool Entry/Exit Pool Entry/Exit Method Stairs Assistance Independent Water Walking Marching Water Level Chest Level Level of Assistance Verbal Cues Sideways Water Level Chest Level Level of Assistance Verbal Cues Backwards Water Level Chest Level Level of Assistance Verbal Cues Forwards Water Level Chest Level Level of Assistance Verbal Cues Spinal Exercises wall squat DLS Body Position Sitting Water Level Neck Level Comments Hor ab/ad, flex/ext, federico and unil Mobile Activities Mobile Activities Bicycle,Bicycle Backwards, Running Other Activities deep water han# federico, [place] float Equipment white noodle Duration 10 PT-OP-T Assessment and Plan Start: 07/13/21 16:15 Freq: Status: Active Protocol: Document 08/24/21 09:31 [facility] (Rec: 08/25/21 09:40 [facility] [id number]) Physical Therapy Assessment Goals Four Impairment interrupted sleep due to pain Short Term Goal (STG) Patient to be instructed in bed positioning for best spinal support STG Duration 08/13/21 Long-Term Goal (LTG) Patient to report 50% reduction in waking due to pain LTG Duration 09/13/21 Three Impairment decreased ROM and strength thoracic and lumbar spines Short Term Goal (STG) Patient to be able to tolerate gentle aquatic ex program without increase in pain for purpose of ROM and strengthening, spinal stabilization STG Duration 08/13/21 Long-Term Goal (LTG) Patient to be independent and compliant with aquatic exercise program designed to improve his ROM and strength and spinal stabilization ability LTG Duration 09/13/21 Two Impairment Pain level 6-9/10 mid thoracic spine Long-Term Goal (LTG) Decrease pain to no greater than 4/10 with all usual activities LTG Duration 09/13/21 One Impairment decreased activity tolerance Impairment Oswestry disability index score 40% Uniform Cap Operator Goal (LTG) Decrease MALORIE score to no greater than 20% as measure of improved activity tolerance LTG Duration 09/13/21 Assessment Summary Assessment Patient tolerated aquatic therapy well with denial of increase in pain, reports no relief of pain. Frequent cues for core activation and stabilization, neutral postural alignment with all ther ex. Physical Therapy Plan Frequency and Duration Frequency of Treatment 2x/Week Duration of Treatment 8 weeks Plan of Care Start Date 07/14/21 Plan of Care End Date 09/13/21 Therapeutic Interventions Therapeutic Interventions Aquatic Therapy,Patient/ Caregiver Education,Self-Care/ Home Management Next Visit Focus/Plan Next Note Type Treatment Note Next Visit Plan ASsess response to first aquatic PT session. Add standing 4-way hip with core emphasis, hamstring, TFL, and piriformis stretching, water walking with UE drag for core challenge.
--- NOTE | 2021-08-31 17:24 | PT.OTN ---
Current Diagnoses Spondylosis without myelopathy or radiculopathy, thoracic region (08/31/21) Other intervertebral disc displacement, thoracic region (08/31/21) Multiple fractures of ribs, left side, sequela (08/31/21) Physical Therapy Treatment Note PT-OP-A Visit Information Start: 07/13/21 16:15 Freq: Status: Active Protocol: Document 08/31/21 17:15 [facility] (Rec: 08/31/21 17:23 [facility] [id number]) Out-Patient Physical Therapy Visit Information Visit Information Visit Type Aquatic Treatment Note Visit Start Time 10:15 Visit Stop Time 11:00 Total Visit Minutes 45 Visit Number 3 PT-OP-B Current Condition Start: 07/13/21 16:15 Freq: Status: Active Protocol: Document 08/31/21 17:15 [facility] (Rec: 08/31/21 17:23 [facility] [id number]) Current Condition History of Current Condition Onset Date January 2017 Current Complaints neck pain, back pain History of Current Condition 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 Since then has had severe chronic pain. Prior Treatments and Tests MRI T8-T11 disc extrusions. Has done PT late 2016, couldn' t tolerate what was being done ; ex, ultrasound, inversion. [address] Oakes; 1 was very helpful, insurance has denied nerve ablation before trial of PT for 6 visits. 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 Has not done aquatic therapy. Lays on side to sleep, sleep interrupted. PT-OP-C Subjective Start: 07/13/21 16:15 Freq: Status: Active Protocol: Document 08/31/21 17:15 [facility] (Rec: 08/31/21 17:23 [facility] [id number]) OP-PT Subjective Patient Comments Patient Comments Patient reports increase in pain after first aquatic PT session. PT-OP-H Neuro Start: 07/13/21 16:15 Freq: Status: Active Protocol: Document 07/14/21 08:14 [facility] (Rec: 07/15/21 17:28 [facility] [id number]) Sensation Evaluation Gross Sensation Gross Sensation WNL PT-OP-J Posture/Palpation/Skin Start: 07/13/21 16:15 Freq: Status: Active Protocol: Document 07/14/21 08:14 [facility] (Rec: 07/15/21 17:28 [facility] [id number]) Posture Evaluation Position Standing Head/C-Spine Posture Forward Head T-Spine Posture Increased Kyphosis L-Spine Posture Increased Lordosis Shoulder Posture (L) Rounded,(R) Rounded Pelvis Posture Anteriorly Tilted Hip Posture (L) Externally Rotated,(R) Externally Rotated Palpation Assessment Location One Palpation Location thoracolumbar spine Palpation Findings Soft Tissue Tightness,Muscle Guarding,Tenderness PT-OP-K Range of Motion Start: 07/13/21 16:15 Freq: Status: Active Protocol: Document 07/14/21 08:14 [facility] (Rec: 07/15/21 17:28 [facility] [id number]) Lumbar Spine Range of Motion Lumbar Spine Active Flexion 20 Extension 10 Rotation Left 30 Rotation Right 25 Lateral Flexion Left 25 Lateral Flexion Right 20 ROM Limitations Soft Tissue Tightness,Pain Hip Goniometric Range of Motion Hip federico Hip ROM WFL Yes PT-OP-M Strength Start: 07/13/21 16:15 Freq: Status: Active Protocol: Document 07/14/21 08:14 [facility] (Rec: 07/15/21 17:28 [facility] [id number]) Hip Strength Hip Manual Muscle Testing federico Flexion (L2) 4- Good- Extension (S1) 4- Good- Abduction 4- Good- Adduction 4- Good- External Rotation 4- Good- Internal Rotation 4- Good- Comments pain with resistance Knee Strength Knee Manual Muscle Testing federico Flexion (S2) 5 Normal Extension (L3) 5 Normal PT-OP-Q Treatments Start: 07/13/21 16:15 Freq: Status: Active Protocol: Document 07/14/21 08:14 [facility] (Rec: 07/15/21 17:28 [facility] [id number]) Self-Care/Home Management Treatment Education Patient Education Home Exercise Program,Pain Management,Posture Other Education bed positioning PT-OP-S Aquatic Treatment Start: 07/13/21 16:15 Freq: Status: Active Protocol: Document 08/31/21 17:15 [facility] (Rec: 08/31/21 17:23 [facility] [id number]) Aquatics Treatment Pool Entry/Exit Pool Entry/Exit Method Stairs Assistance Independent Water Walking Backwards Water Level Chest Level Level of Assistance Verbal Cues Comments cues for postural alignment and core stab Forwards Water Level Chest Level Level of Assistance Verbal Cues Comments cues for postural alignment and core stab Lower Extremity Stretches piriformis stretch Reps/Duration 2x30 quads Details also hip flex Equipment Small Noodle Reps/Duration 2x30 Comments cues for alignment , glueal activation HS Details also ITB and groin Equipment Small Noodle Reps/Duration 2x30 Upper Extremity Exercises lateral pull downs Reps/Duration 10x federico, 10x unil UE pull downs Details fwd Equipment long barbell Reps/Duration 10x Spinal Exercises wall squat DLS Details knees and ankles together, cues for core stab Body Position Sitting Water Level Neck Level Comments Hor ab/ad, flex/ext, federico and unil [place] Activities [place] Activities Bicycle,Bicycle Backwards, Running Equipment white noodle Duration 10 min Swim Strokes supine flutter Laps/Duration 15 ft Comments c/o increased LBP PT-OP-T Assessment and Plan Start: 07/13/21 16:15 Freq: Status: Active Protocol: Document 08/31/21 17:15 [facility] (Rec: 08/31/21 17:23 [facility] [id number]) Physical Therapy Assessment Evaluation Complexity Number of Personal Factors/Comorbidities 1-2 Number of Body Systems Impaired 3 Clinical Presentation at Evaluation Evolving Goals Four Impairment interrupted sleep due to pain Short Term Goal (STG) Patient to be instructed in bed positioning for best spinal support STG Duration 08/13/21 [facility] Goal (LTG) Patient to report 50% reduction in waking due to pain LTG Duration 09/13/21 Three Impairment decreased ROM and strength thoracic and lumbar spines Short Term Goal (STG) Patient to be able to tolerate gentle aquatic ex program without increase in pain for purpose of ROM and strengthening, spinal stabilization STG Duration 08/13/21 Solvent Recoverer Goal (LTG) Patient to be independent and compliant with aquatic exercise program designed to improve his ROM and strength and spinal stabilization ability LTG Duration 09/13/21 Two Impairment Pain level 6-9/10 mid thoracic spine Solvent Recoverer Goal (LTG) Decrease pain to no greater than 4/10 with all usual activities LTG Duration 09/13/21 One Impairment decreased activity tolerance Impairment Oswestry disability index score 40% [facility] Goal (LTG) Decrease MALORIE score to no greater than 20% as measure of improved activity tolerance LTG Duration 09/13/21 Assessment Summary Assessment Patient requires moderate cues for neutral postural alignment and core activation with all therapy activities, denied increase in pain during treatment except for supine flutter, may need to add flotation for decreased lumbar stress if done again. Physical Therapy Plan Frequency and Duration Frequency of Treatment 2x/Week Duration of Treatment 8 weeks Plan of Care Start Date 07/14/21 Plan of Care End Date 09/13/21 Next Visit Focus/Plan Next Note Type Treatment Note Next Visit Plan assess response to today's session with no deep water traction. Consider Chi. Add 4-way hip strengthening with core stab emphasis, deep water DLS. Consider manual treatments.
--- NOTE | 2021-09-14 14:46 | PT.OTN ---
Current Diagnoses Spondylosis without myelopathy or radiculopathy, thoracic region (09/14/21) Other intervertebral disc displacement, thoracic region (09/14/21) Multiple fractures of ribs, left side, sequela (09/14/21) Physical Therapy Treatment Note PT-OP-A Visit Information Start: 07/13/21 16:15 Freq: Status: Active Protocol: Document 09/14/21 14:23 [facility] (Rec: 09/14/21 14:46 [facility] [id number]) Out-Patient Physical Therapy Visit Information Visit Information Visit Type Aquatic Treatment Note Visit Start Time 10:15 Visit Stop Time 11:00 Total Visit Minutes 45 Visit Number 4 Number of HOOKER INSPECTOR Visits 1 PT-OP-B Current Condition Start: 07/13/21 16:15 Freq: Status: Active Protocol: Document 08/31/21 17:15 [facility] (Rec: 08/31/21 17:23 [facility] [id number]) Current Condition History of Current Condition Onset Date January 2017 Current Complaints neck pain, back pain History of Current Condition 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 Since then has had severe chronic pain. Prior Treatments and Tests MRI T8-T11 disc extrusions. Has done PT late 2016, couldn' t tolerate what was being done ; ex, ultrasound, inversion. [address] Oakes; 1 was very helpful, insurance has denied nerve ablation before trial of PT for 6 visits. 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 Has not done aquatic therapy. Lays on side to sleep, sleep interrupted. PT-OP-C Subjective Start: 07/13/21 16:15 Freq: Status: Active Protocol: Document 09/14/21 14:23 (Rec: 09/14/21 14:46 [facility] [id number]) OP-PT Subjective Patient Comments Patient Comments Pt states he was driving a lot the past few days and is sore because of that and not being able to attend his chiropractic appointment recently. Also, he hasn't been in the pool for 2 weeks and thinks he is sore because of that also. PT-OP-H Neuro Start: 07/13/21 16:15 Freq: Status: Active Protocol: Document 07/14/21 08:14 [facility] (Rec: 07/15/21 17:28 [facility] [id number]) Sensation Evaluation Gross Sensation Gross Sensation WNL PT-OP-J Posture/Palpation/Skin Start: 07/13/21 16:15 Freq: Status: Active Protocol: Document 07/14/21 08:14 [facility] (Rec: 07/15/21 17:28 [facility] [id number]) Posture Evaluation Position Standing Head/C-Spine Posture Forward Head T-Spine Posture Increased Kyphosis L-Spine Posture Increased Lordosis Shoulder Posture (L) Rounded,(R) Rounded Pelvis Posture Anteriorly Tilted Hip Posture (L) Externally Rotated,(R) Externally Rotated Palpation Assessment Location One Palpation Location thoracolumbar spine Palpation Findings Soft Tissue Tightness,Muscle Guarding,Tenderness PT-OP-K Range of Motion Start: 07/13/21 16:15 Freq: Status: Active Protocol: Document 07/14/21 08:14 [facility] (Rec: 07/15/21 17:28 [facility] [id number]) Lumbar Spine Range of Motion Lumbar Spine Active Flexion 20 Extension 10 Rotation Left 30 Rotation Right 25 Lateral Flexion Left 25 Lateral Flexion Right 20 ROM Limitations Soft Tissue Tightness,Pain Hip Goniometric Range of Motion Hip federico Hip ROM WFL Yes PT-OP-M Strength Start: 07/13/21 16:15 Freq: Status: Active Protocol: Document 07/14/21 08:14 [facility] (Rec: 07/15/21 17:[address] [facility] [id number]) Hip Strength Hip Manual Muscle Testing federico Flexion (L2) 4- Good- Extension (S1) 4- Good- Abduction 4- Good- Adduction 4- Good- External Rotation 4- Good- Internal Rotation 4- Good- Comments pain with resistance Knee Strength Knee Manual Muscle Testing federico Flexion (S2) 5 Normal Extension (L3) 5 Normal PT-OP-Q Treatments Start: 07/13/21 16:15 Freq: Status: Active Protocol: Document 07/14/21 08:14 [facility] (Rec: 07/15/21 17:[address] [facility] [id number]) Self-Care/Home Management Treatment Education Patient Education Home Exercise Program,Pain Management,Posture Other Education bed positioning PT-OP-S Aquatic Treatment Start: 07/13/21 16:15 Freq: Status: Active Protocol: Document 09/14/21 14:23 [facility] (Rec: 09/14/21 14:46 [facility] [id number]) Aquatics Treatment Pool Entry/Exit Pool Entry/Exit Method Stairs Assistance Independent Water Walking Marching Water Level Chest Level Level of Assistance Verbal Cues Sideways Water Level Chest Level Level of Assistance Verbal Cues Comments gentle HABD/HADD Backwards Water Level Chest Level Level of Assistance Verbal Cues Comments gentle bs arms forward and reverse; cue for core and posture Forwards Water Level Chest Level Level of Assistance Verbal Cues Comments cues for postural alignment and core stab Lower Extremity Exercises 4-way hip Details hh on wall Body Position Standing Water Level Chest Level Reps/Duration 2x8 each B Comments slow and gentle with attention to core, posture, and limited ROM Lower Extremity Stretches piriformis stretch Reps/Duration 2x30 quads Details also hip flex Equipment Small Noodle Reps/Duration 2x30 Comments cues for alignment , glueal activation HS Details also ITB and groin Equipment Small Noodle Reps/Duration 2x30 Upper Extremity Exercises lateral pull downs Reps/Duration 10x federico, 10x unil UE pull downs Details fwd Equipment long barbell Reps/Duration 10x Upper Extremity Stretches [id number] Details facing wall; 45 degree angle plank Body Position Standing Reps/Duration 5 B Spinal Exercises wall squat DLS Details knees and ankles together, cues for core stab Body Position Sitting Water Level Neck Level Comments Hor ab/ad, flex/ext, federico and unil [place] Activities [place] Activities Bicycle,Bicycle Backwards, Running Equipment white noodle Duration 10 min Chi Chi Duration (Minutes) 4 Comments gentle and slow stretches PT-OP-T Assessment and Plan Start: 07/13/21 16:15 Freq: Status: Active Protocol: Document 09/14/21 14:23 [facility] (Rec: 09/14/21 14:46 [facility] [id number]) Physical Therapy Assessment Rehab Potential Rehabilitation Potential Fair Evaluation Complexity Number of Personal Factors/Comorbidities 1-2 Number of Body Systems Impaired 3 Clinical Presentation at Evaluation Evolving Goals Four Impairment interrupted sleep due to pain Short Term Goal (STG) Patient to be instructed in bed positioning for best spinal support STG Duration 08/13/21 Detention Goal (LTG) Patient to report 50% reduction in waking due to pain LTG Duration 09/13/21 Three Impairment decreased ROM and strength thoracic and lumbar spines Short Term Goal (STG) Patient to be able to tolerate gentle aquatic ex program without increase in pain for purpose of ROM and strengthening, spinal stabilization STG Duration 08/13/21 Detention Goal (LTG) Patient to be independent and compliant with aquatic exercise program designed to improve his ROM and strength and spinal stabilization ability LTG Duration 09/13/21 Two Impairment Pain level 6-9/10 mid thoracic spine Detention Goal (LTG) Decrease pain to no greater than 4/10 with all usual activities 09/14/21-patient reported 6/10 pain right anterior rib, mid- thorax to lumbar spine LTG Duration 09/13/21 One Impairment decreased activity tolerance Impairment Oswestry disability index score 40% Transportation Design Engineer Goal (LTG) 09/14/21-MALORIE score reported 50% by patient Assessment Summary Assessment Pt tolerated gentle exercises without increase in pain as long as ROM was limited. Pt required frequent cueing for core activation and posture. Deep water activities kept to minimum effort due to reported increase in pain after last session deep water activities. Physical Therapy Plan Frequency and Duration Frequency of Treatment 2x/Week Duration of Treatment 8 weeks Plan of Care Start Date 07/14/21 Plan of Care End Date 09/13/21 Therapeutic Interventions Therapeutic Interventions Aquatic Therapy,Patient/ Caregiver Education,Self-Care/ Home Management Next Visit Focus/Plan Next Note Type Treatment Note Next Visit Plan Continue with Chi adding moves as tolerated. Add 4-way hip strengthening with core stab emphasis, deep water DLS. Consider manual treatments.
--- NOTE | 2021-09-14 17:33 | PT.OTRE ---
Current Diagnoses Spondylosis without myelopathy or radiculopathy, thoracic region (09/14/21) Other intervertebral disc displacement, thoracic region (09/14/21) Multiple fractures of ribs, left side, sequela (09/14/21) Past Medical History (Last Updated 05/29/21 @ 14:32 by Miguel Oakes DO) ADHD (~1995) Cervical radiculopathy Chicken pox (~1995) Facet arthropathy, thoracic Fractures Glaucoma (~2018) Headache (~1995) History of ankle surgery History of knee surgery (~2016) History of shoulder surgery HNP (herniated nucleus pulposus), thoracic HTN (hypertension) Hyperlipidemia, mixed Lumbar radiculopathy Migraines (~1995) Piriformis syndrome of left side Viral syndrome Vision disorder Surgical History (Last Reviewed 05/29/21 @ 14:28 by Miguel Oakes DO) Anesthesia History of ankle surgery History of knee surgery (~2016) History of shoulder surgery Visit Care Team Role Provider Type Negro Joyner DO Family Provider Physician Primary Care Provider Specialty: Family Practice Address: [address] [place] [address], [id number] Email: Miguel Oakes DO Attending Provider Physician Referring Provider Specialty: Physiatry Pain Management Address: [address] [place] [address], [id number] Email: [email or web address] Physical Therapy Re-Evaluation PT-OP-A Visit Information Start: 07/13/21 16:15 Freq: Status: Active Protocol: Document 09/14/21 14:23 LJ (Rec: 09/14/21 14:46 LJ [id number]) Out-Patient Physical Therapy Visit Information Visit Information Visit Type Aquatic Treatment Note Visit Start Time 10:15 Visit Stop Time 11:00 Total Visit Minutes 45 Visit Number 4 Number of RESIDENT SERVICES COORDINATOR Visits 1 PT-OP-B Current Condition Start: 07/13/21 16:15 Freq: Status: Active Protocol: Document 08/31/21 17:15 SAK (Rec: 08/31/21 17:23 SAK [id number]) Current Condition History of Current Condition Onset Date January 2017 Current Complaints neck pain, back pain History of Current Condition 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 Since then has had severe chronic pain. Prior Treatments and Tests MRI T8-T11 disc extrusions. Has done PT late 2017, couldn' t tolerate what was being done ; ex, ultrasound, inversion. [address] O[address]; 1 was very helpful, insurance has denied nerve ablation before trial of PT for 6 visits. 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 Has not done aquatic therapy. Lays on side to sleep, sleep interrupted. PT-OP-C Subjective Start: 07/13/21 16:15 Freq: Status: Active Protocol: Document 09/14/21 14:23 LJ (Rec: 09/14/21 14:46 LJ [id number]) OP-PT Subjective Patient Comments Patient Comments Pt states he was driving a lot the past few days and is sore because of that and not being able to attend his chiropractic appointment recently. Also, he hasn't been in the pool for 2 weeks and thinks he is sore because of that also. PT-OP-H Neuro Start: 07/13/21 16:15 Freq: Status: Active Protocol: Document 07/14/21 08:14 SAK (Rec: 07/15/21 17:28 SAK [id number]) Sensation Evaluation Gross Sensation Gross Sensation WNL PT-OP-J Posture/Palpation/Skin Start: 07/13/21 16:15 Freq: Status: Active Protocol: Document 07/14/21 08:14 SAK (Rec: 07/15/21 17:28 SAK [id number]) Posture Evaluation Position Standing Head/C-Spine Posture Forward Head T-Spine Posture Increased Kyphosis L-Spine Posture Increased Lordosis Shoulder Posture (L) Rounded,(R) Rounded Pelvis Posture Anteriorly Tilted Hip Posture (L) Externally Rotated,(R) Externally Rotated Palpation Assessment Location One Palpation Location thoracolumbar spine Palpation Findings Soft Tissue Tightness,Muscle Guarding,Tenderness PT-OP-K Range of Motion Start: 07/13/21 16:15 Freq: Status: Active Protocol: Document 07/14/21 08:14 SAK (Rec: 07/15/21 17:28 SAK [id number]) Lumbar Spine Range of Motion Lumbar Spine Active Flexion 20 Extension 10 Rotation Left 30 Rotation Right 25 Lateral Flexion Left 25 Lateral Flexion Right 20 ROM Limitations Soft Tissue Tightness,Pain Hip Goniometric Range of Motion Hip Measured in Degrees federico Hip ROM WFL Yes PT-OP-M Strength Start: 07/13/21 16:15 Freq: Status: Active Protocol: Document 07/14/21 08:14 [facility] (Rec: 07/15/21 17:28 [facility] [id number]) Hip Strength Hip Manual Muscle Testing federico Flexion (L2) 4- Good- Extension (S1) 4- Good- Abduction 4- Good- Adduction 4- Good- External Rotation 4- Good- Internal Rotation 4- Good- Comments pain with resistance Knee Strength Knee Manual Muscle Testing federico Flexion (S2) 5 Normal Extension (L3) 5 Normal PT-OP-Q Treatments Start: 07/13/21 16:15 Freq: Status: Active Protocol: Document 07/14/21 08:14 [facility] (Rec: 07/15/21 17:28 [facility] [id number]) Self-Care/Home Management Treatment Education Patient Education Home Exercise Program,Pain Management,Posture Other Education bed positioning PT-OP-T Assessment and Plan Start: 07/13/21 16:15 Freq: Status: Active Protocol: Document 09/14/21 17:23 [facility] (Rec: 09/14/21 17:33 [facility] [id number]) Physical Therapy Assessment Goals Four Impairment interrupted sleep due to pain Short Term Goal (STG) Patient to be instructed in bed positioning for best spinal support 09/14/21: goal achieved. STG Duration goal met [facility] Goal (LTG) Patient to report 50% reduction in waking due to pain 09/14/21: no change in waking due to pain LTG Duration 10/08/21 Three Impairment decreased ROM and strength thoracic and lumbar spines Short Term Goal (STG) Patient to be able to tolerate gentle aquatic ex program without increase in pain for purpose of ROM and strengthening, spinal stabilization 09/15/19: goal progress; still some reports of inc pain after PT [facility] Goal (LTG) Patient to be independent and compliant with aquatic exercise program designed to improve his ROM and strength and spinal stabilization ability and decrease his pain LTG Duration 10/08/21 Two Impairment Pain level 6-9/10 mid thoracic spine Rn Transport Goal (LTG) Decrease pain to no greater than 4/10 with all usual activities 09/14/21-patient reported 6/10 pain right anterior rib, mid- thorax to lumbar spine LTG Duration 10/08/21 One Impairment decreased activity tolerance Impairment Oswestry disability index score 40% Rn Transport Goal (LTG) 09/14/21-MALORIE score reported 50% by patient, score worsened LTG Duration 10/08/21 Assessment Summary Assessment Patient has improved tolerance for ex in pool vs land but still tolerates minimal intensity or ROM with aquatic exercises. Despite modifications reports increase in pain after aquatic therapy so far. Has not attempted gentle exercises on his own as more consistent activity would be more beneficial and aquatic PT schedule has not allowed scheduling more than 1x/wk. Patient has 3 more aquatic therapy sessions, then it is recommended he return to his doctor to discuss any further treatment plans. Physical Therapy Plan Frequency and Duration Frequency of Treatment 1x/Week Duration of Treatment 4 weeks Plan of Care Start Date 09/14/21 Plan of Care End Date 10/08/21 Therapeutic Interventions Therapeutic Interventions Aquatic Therapy,Patient/ Caregiver Education,Self-Care/ Home Management Next Visit Focus/Plan Next Note Type Treatment Note Next Visit Plan Trial manual treatment supine to decrease muscle tension and pain. Continue with Chi aquatic ex adding moves as tolerated. Add 4-way hip strengthening with core stab emphasis, deep water DLS.
--- NOTE | 2021-09-14 17:33 | PT.OPPOC ---
Physical, Occupational & Speech Therapy At [facility] Current Diagnoses Spondylosis without myelopathy or radiculopathy, thoracic region (09/14/21) Other intervertebral disc displacement, thoracic region (09/14/21) Multiple fractures of ribs, left side, sequela (09/14/21) Visit Care Team Role Provider Type Negro Joyner DO Family Provider Physician Primary Care Provider Specialty: Family Practice Address: [address] [place] [address], [id number] Email: Miguel Oakes DO Attending Provider Physician Referring Provider Specialty: Physiatry Pain Management Address: [facility] [place], [address] Email: [email or web address] Plan Of Care PT-OP-T Assessment and Plan Start: 07/13/21 16:15 Freq: Status: Active Protocol: Document 09/14/21 17:23 SAK (Rec: 09/14/21 17:33 SAK [id number]) Physical Therapy Assessment Goals Four Impairment interrupted sleep due to pain Short Term Goal (STG) Patient to be instructed in bed positioning for best spinal support 09/14/21: goal achieved. STG Duration goal met [employer] Manager Goal (LTG) Patient to report 50% reduction in waking due to pain 09/14/21: no change in waking due to pain LTG Duration 10/08/21 Three Impairment decreased ROM and strength thoracic and lumbar spines Short Term Goal (STG) Patient to be able to tolerate gentle aquatic ex program without increase in pain for purpose of ROM and strengthening, spinal stabilization 09/15/19: goal progress; still some reports of inc pain after PT [facility] Goal (LTG) Patient to be independent and compliant with aquatic exercise program designed to improve his ROM and strength and spinal stabilization ability and decrease his pain LTG Duration 10/08/21 Two Impairment Pain level 6-9/10 mid thoracic spine [facility] Goal (LTG) Decrease pain to no greater than 4/10 with all usual activities 09/14/21-patient reported 6/10 pain right anterior rib, mid- thorax to lumbar spine LTG Duration 10/08/21 One Impairment decreased activity tolerance Impairment Oswestry disability index score 40% [facility] Goal (LTG) 09/14/21-MALORIE score reported 50% by patient, score worsened LTG Duration 10/08/21 Assessment Summary Assessment Patient has improved tolerance for ex in pool vs land but still tolerates minimal intensity or ROM with aquatic exercises. Despite modifications reports increase in pain after aquatic therapy so far. Has not attempted gentle exercises on his own as more consistent activity would be more beneficial and aquatic PT schedule has not allowed scheduling more than 1x/wk. Patient has 3 more aquatic therapy sessions, then it is recommended he return to his doctor to discuss any further treatment plans. Physical Therapy Plan Frequency and Duration Frequency of Treatment 1x/Week Duration of Treatment 4 weeks Plan of Care Start Date 09/14/21 Plan of Care End Date 10/08/21 Therapeutic Interventions Therapeutic Interventions Aquatic Therapy,Patient/ Caregiver Education,Self-Care/ Home Management Next Visit Focus/Plan Next Note Type Treatment Note Next Visit Plan Trial manual treatment supine to decrease muscle tension and pain. Continue with Chi aquatic ex adding moves as tolerated. Add 4-way hip strengthening with core stab emphasis, deep water DLS. Plan of Care Dates Plan of Care Start Date 09/14/21 Plan of Care End Date 10/08/21 Electronically Signed by: Tiff Castillo, PT 09/14/21 [id number] If you are in agreement with this Plan of Care, please return a signed and dated copy. I have reviewed this Plan of Care and certify that the skilled therapy services above are required to meet the patient?s needs. Physician Signature Date Printed Name and Credentials Clinical Instructor Signature Printed Name and Credentials
--- NOTE | 2021-09-21 14:33 | PT.OTN ---
Current Diagnoses Spondylosis without myelopathy or radiculopathy, thoracic region (09/21/21) Other intervertebral disc displacement, thoracic region (09/21/21) Multiple fractures of ribs, left side, sequela (09/21/21) Physical Therapy Treatment Note PT-OP-A Visit Information Start: 07/13/21 16:15 Freq: Status: Active Protocol: Document 09/21/21 14:22 (Rec: 09/21/21 14:33 [id number]) Out-Patient Physical Therapy Visit Information Visit Information Visit Type Aquatic Treatment Note Visit Start Time 10:15 Visit Stop Time 11:00 Total Visit Minutes 45 Visit Number 5 Number of PIPE BENDER Visits 1 PT-OP-B Current Condition Start: 07/13/21 16:15 Freq: Status: Active Protocol: Document 08/31/21 17:15 SAK (Rec: 08/31/21 17:23 SAK [id number]) Current Condition History of Current Condition Onset Date January 2017 Current Complaints neck pain, back pain History of Current Condition 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 Since then has had severe chronic pain. Prior Treatments and Tests MRI T8-T11 disc extrusions. Has done PT late 2016, couldn' t tolerate what was being done ; ex, ultrasound, inversion. [address] Oakes; 1 was very helpful, insurance has denied nerve ablation before trial of PT for 6 visits. 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 Has not done aquatic therapy. Lays on side to sleep, sleep interrupted. PT-OP-C Subjective Start: 07/13/21 16:15 Freq: Status: Active Protocol: Document 09/21/21 14:22 (Rec: 09/21/21 14:33 [id number]) OP-PT Subjective Patient Comments Patient Comments Pt reports having no pain for 2 days after last AT session. Today he says his back has been sore all weekend but not sure why. He did a lot of walking but states that walking usually lessens the pain. PT-OP-H Neuro Start: 07/13/21 16:15 Freq: Status: Active Protocol: Document 07/14/21 08:14 SAK (Rec: 07/15/21 17:28 SAK [id number]) Sensation Evaluation Gross Sensation Gross Sensation WNL PT-OP-J Posture/Palpation/Skin Start: 07/13/21 16:15 Freq: Status: Active Protocol: Document 07/14/21 08:14 SAK (Rec: 07/15/21 17:28 SAK [id number]) Posture Evaluation Position Standing Head/C-Spine Posture Forward Head T-Spine Posture Increased Kyphosis L-Spine Posture Increased Lordosis Shoulder Posture (L) Rounded,(R) Rounded Pelvis Posture Anteriorly Tilted Hip Posture (L) Externally Rotated,(R) Externally Rotated Palpation Assessment Location One Palpation Location thoracolumbar spine Palpation Findings Soft Tissue Tightness,Muscle Guarding,Tenderness PT-OP-K Range of Motion Start: 07/13/21 16:15 Freq: Status: Active Protocol: Document 07/14/21 08:14 SAK (Rec: 07/15/21 17:28 SAK [id number]) Lumbar Spine Range of Motion Lumbar Spine Active Flexion 20 Extension 10 Rotation Left 30 Rotation Right 25 Lateral Flexion Left 25 Lateral Flexion Right 20 ROM Limitations Soft Tissue Tightness,Pain Hip Goniometric Range of Motion Hip federico Hip ROM WFL Yes PT-OP-M Strength Start: 07/13/21 16:15 Freq: Status: Active Protocol: Document 07/14/21 08:14 SAK (Rec: 07/15/21 17:28 SAK [id number]) Hip Strength Hip Manual Muscle Testing federico Flexion (L2) 4- Good- Extension (S1) 4- Good- Abduction 4- Good- Adduction 4- Good- External Rotation 4- Good- Internal Rotation 4- Good- Comments pain with resistance Knee Strength Knee Manual Muscle Testing federico Flexion (S2) 5 Normal Extension (L3) 5 Normal PT-OP-Q Treatments Start: 07/13/21 16:15 Freq: Status: Active Protocol: Document 07/14/21 08:14 SAK (Rec: 07/15/21 17:28 SAK [id number]) Self-Care/Home Management Treatment Education Patient Education Home Exercise Program,Pain Management,Posture Other Education bed positioning PT-OP-S Aquatic Treatment Start: 07/13/21 16:15 Freq: Status: Active Protocol: Document 09/21/21 14:22 LJ (Rec: 09/21/21 14:33 LJ [id number]) Aquatics Treatment Pool Entry/Exit Pool Entry/Exit Method Stairs Assistance Independent Water Walking Marching Water Level Chest Level Level of Assistance Verbal Cues Sideways Water Level Chest Level Level of Assistance Verbal Cues Comments gentle HABD/HADD Backwards Water Level Chest Level Level of Assistance Verbal Cues Comments gentle bs arms forward and reverse; cue for core and posture Forwards Water Level Chest Level Level of Assistance Verbal Cues Comments cues for postural alignment and core stab Lower Extremity Stretches piriformis stretch Reps/Duration 2x30 HS Details also ITB and groin Equipment Small Noodle Reps/Duration 2x30 Upper Extremity Exercises lateral pull downs Reps/Duration 10x federico, 10x unil UE pull downs Details fwd Equipment long barbell Reps/Duration 10x Upper Extremity Stretches [id number] Details facing wall; 45 degree angle plank Body Position Standing Reps/Duration 5 B Spinal Exercises trunk rotation Body Position Standing Water Level Chest Level Reps/Duration 6 B Comments reaching across body coordinated with breathing wall squat DLS Details knees and ankles together, cues for core stab Body Position Sitting Water Level Neck Level Comments Hor ab/ad, flex/ext, federico and unil Lower Brule Activities Lower Brule Activities Bicycle,Bicycle Backwards Equipment white noodle Duration 15 Chi Chi Duration (Minutes) 8 Comments gentle and slow stretches PT-OP-T Assessment and Plan Start: 07/13/21 16:15 Freq: Status: Active Protocol: Document 09/21/21 14:22 SUJIT (Rec: 09/21/21 14:33 SUJIT [id number]) Physical Therapy Assessment Rehab Potential Rehabilitation Potential Fair Evaluation Complexity Number of Personal Factors/Comorbidities 1-2 Number of Body Systems Impaired 3 Clinical Presentation at Evaluation Evolving Impairments Impairments Activity Tolerance,Pain,ROM, Strength Goals Four Impairment interrupted sleep due to pain Short Term Goal (STG) Patient to be instructed in bed positioning for best spinal support 09/14/21: goal achieved. STG Duration goal met [employer] Hook[employer] Hand Goal (LTG) Patient to report 50% reduction in waking due to pain 09/14/21: no change in waking due to pain LTG Duration 10/08/21 Three Impairment decreased ROM and strength thoracic and lumbar spines Short Term Goal (STG) Patient to be able to tolerate gentle aquatic ex program without increase in pain for purpose of ROM and strengthening, spinal stabilization 09/15/19: goal progress; still some reports of inc pain after PT Rug Hooker Hand Goal (LTG) Patient to be independent and compliant with aquatic exercise program designed to improve his ROM and strength and spinal stabilization ability and decrease his pain LTG Duration 10/08/21 Two Impairment Pain level 6-9/10 mid thoracic spine Rug Hooker Hand Goal (LTG) Decrease pain to no greater than 4/10 with all usual activities 09/14/21-patient reported 6/10 pain right anterior rib, mid- thorax to lumbar spine LTG Duration 10/08/21 One Impairment decreased activity tolerance Impairment Oswestry disability index score 40% Skilled Nursing Goal (LTG) 09/14/21-MALORIE score reported 50% by patient, score worsened LTG Duration 10/08/21 Assessment Summary Assessment Pt tolerated all exercises well when kept to gentle motion and reduced ROM where necessary such as reaching across body and breaststroke arms. No increase in pain with deep water exercises. Physical Therapy Plan Frequency and Duration Frequency of Treatment 1x/Week Duration of Treatment 4 weeks Plan of Care Start Date 09/14/21 Plan of Care End Date 10/08/21 Therapeutic Interventions Therapeutic Interventions Aquatic Therapy,Patient/ Caregiver Education,Self-Care/ Home Management Next Visit Focus/Plan Next Note Type Treatment Note Next Visit Plan Trial manual treatment supine to decrease muscle tension and pain. Continue with Chi aquatic ex adding moves as tolerated. Progress pt with balance and stretching with gentle exercise increasing strengthening as tolerated.
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
== END 2022-04-06 08:56 | disposition home or self-care (01) ==
LOC: PHYS 10:15
PROVIDERS: Family Provider Family Medicine; PCP Family Medicine; Referring Provider Physical Medicine & Rehabilitation; Visit Provider Physical Medicine & Rehabilitation
DX: M47.814 Spondylosis without myelopathy or radiculopathy, thoracic region (principal); M51.24 Other intervertebral disc displacement, thoracic region; S22.42XS Multiple fractures of ribs, left side, sequela
CPT/HCPCS: 97113; 97162; 97535

== ENCOUNTER → 2022-07-27 08:11 | Outpatient (CLI) | payer OTHER, SELFPAY ==
--- NOTE | 2022-07-27 08:13 | DI.MRI.S_ITS ---
PROCEDURE: MR LUMBAR SPINE WO CON INDICATIONS: increasing pain TECHNIQUE: Noncontrast sagittal T1 spin echo and T2 fast echo, sagittal STIR, and T2 fast spin echo through the lumbar spine. In cases with scoliosis, additional coronal T2 fast spin echo may be performed. COMPARISON: [facility], CT, ABDOMEN/PELVIS WITH CONTRAST, 11/12/2015, 21:34. [facility], MR, MR LUMBAR SPINE WO CON, 06/27/2020, 7:07. [facility], MR, MR THORACIC SPINE WO CON, 07/27/2022, 8:29. FINDINGS: Image quality: Excellent. Alignment and Curvature: There is normal bony alignment. Bone Marrow: Marrow is of normal overall signal. No acute vertebral body compression fractures. Note is made of a Schmorl's node along the superior endplate of S1, which is a stable finding. Spinal Cord: Conus medullaris terminates at the L1 level. Visualized cord demonstrates normal signal and size. Paraspinous Soft Tissues: No paravertebral masses. T12-L1: Normal appearance. L1-L2: Normal appearance. L2-L3: Normal appearance. L3-L4: Normal appearance. L4-L5: The disc height and disk signal are well-preserved. Mild to moderate disc bulge is seen, which is eccentric to the right. Mild facet joint hypertrophy is seen. Moderate bilateral neural foraminal narrowing is seen. No central canal narrowing is seen. These imaging findings have progressed compared to the prior study. L5-S1: Mild loss of disc height is seen. Loss of disc signal is seen. Mild generalized disc bulge is seen. There is a superimposed central disc protrusion. There is a focal annular fissure seen posteriorly. Mild facet joint hypertrophy is seen. Moderate bilateral neural foraminal narrowing is seen. No central canal narrowing is seen. These imaging findings have progressed compared to the prior study. IMPRESSION: Lower lumbar spine degenerative changes are seen, which are progressed compared to 2020. Dictated by: Grover Calloway M.D. on 07/27/2022 at 9:51 Approved by: Grover Calloway M.D. on 07/27/2022 at 9:55
--- NOTE | 2022-07-27 08:13 | DI.MRI.S_ITS ---
PROCEDURE: MR THORACIC SPINE WO CON INDICATIONS: increasing pain TECHNIQUE: Noncontrast sagittal T1 spine echo and T2 fast spin echo, sagittal STIR, and T2 fast spin echo through the thoracic spine. COMPARISON: [facility], CR, XR THORACIC SPINE 3V, 03/22/2019, 9:09. [facility], MR, MR LUMBAR SPINE WO CON, 07/27/2022, 8:29. [facility], MR, MR THORACIC SPINE WO CON, 01/29/2019, 18:22. FINDINGS: Image quality: Diagnostic, with note made of motion artifact. Alignment and Curvature: There is normal bony alignment. Bone Marrow: Marrow is of normal overall signal. No acute vertebral body compression fractures. Spinal Cord: Visualized spinal cord is normal in size and signal. Paraspinous Soft Tissues: No paravertebral masses. Miscellaneous: At the T9-T10 level, there is a focal central disc protrusion seen as on series 6, image 8 and on series 10 image 16. The previously seen annular fissure is not well seen on the current study. The disc protrusion is minimally smaller on the current study than on the prior. [id number] central canal narrowing is seen, with mild mass effect upon the ventral spinal cord. No significant neural foraminal narrowing can be seen. Milder degenerative changes are seen elsewhere. IMPRESSION: Focal T9-T10 degenerative change can be seen, which is minimally improved compared to 2019. Dictated by: Grover Calloway M.D. on 07/27/2022 at 9:55 Approved by: Grover Calloway M.D. on 07/27/2022 at 9:58
== END ==
PROVIDERS: Family Provider Family Medicine; PCP Family Medicine; Referring Provider Family Medicine; Visit Provider Family Medicine
DX: M47.26 Other spondylosis with radiculopathy, lumbar region; M47.27 Other spondylosis with radiculopathy, lumbosacral region; M47.24 Other spondylosis with radiculopathy, thoracic region; M51.14 Intervertebral disc disorders with radiculopathy, thoracic region; G89.29 Other chronic pain
CPT/HCPCS: 72146; 72148

== ENCOUNTER → 2023-06-09 11:34 | Outpatient (CLI) | payer OTHER, SELFPAY ==
[2023-06-09 12:35] LABS: Add Manual Diff / Slide Review NO; Basophils Absolute Auto 100 /uL (0-100); Basophils Percent Auto 0.7 % (0-2); Eosinophils Absolute Auto 100 /uL (0-450); Eosinophils Percent Auto 1.5 % (2-4); Hematocrit 46.9 % (41-53); Hemoglobin 16.8 g/dL (13.5-17.5); Lymphocytes Absolute Auto 3800 /uL (1100-4500); Mean Corpuscular HGB Conc 35.8 % (30-36); Mean Corpuscular Hemoglobin 32.3 PG (26-34); Mean Corpuscular Volume 90.3 fL (80-100); Monocytes Absolute Auto 500 /uL (0-900); Monocytes Percent Auto 5.6 % (3-14); Neutrophils Absolute Auto 5000 /uL (1500-7000); Neutrophils Percent Auto 52.2 % (50-75); Platelet Count 269 X10^3/uL (150-400); Red Cell Distribution Width 12.7 % (11.6-14.8); White Blood Cell Count 9.5 X10^3/uL (4.5-11.0)
[2023-06-09 12:45] LABS: Hemoglobin A1C% w Est Avg Glu 5.3 % (4.0-6.0)
[2023-06-09 13:00] LABS: Alanine Aminotransferase 97 IU/L (<50); Albumin 4.6 g/dL (3.5-5.0); Albumin Globulin Ratio 1.4 (1.0-2.8); Alkaline Phosphatase 54 U/L (38-126); Aspartate Aminotransferase 48 IU/L (17-59); BUN Creatinine Ratio 12.4 (6-22); Bilirubin Total 0.9 mg/dL (0.2-1.3); Blood Urea Nitrogen 12 mg/dL (9-20); Calcium 9.6 mg/dL (8.4-10.2); Carbon Dioxide 30 mmol/L (22-32); Chloride 103 mmol/L (98-107); Cholesterol 226 mg/dL (140-199); Estimated Glomerular Filt Rate > 60 mL/min (>60); Globulin 3.3 g/dL (1.7-4.1); Glucose 104 mg/dL (70-100); HDL Cholesterol 34 mg/dL (40-60); HEMOLYSIS < 15 (0-50); LDL Cholesterol Calculated 143 mg/dL (<100); Potassium 4.5 mmol/L (3.4-5.1); Sodium 138 mmol/L (137-145); Total Protein 7.9 g/dL (6.3-8.2); Triglycerides 244 mg/dL (35-150)
[2023-06-09 13:33] LABS: TSH w/ Reflex to FT4 0.95 uIU/mL (0.47-4.68)
== END ==
PROVIDERS: Family Provider Family Medicine; PCP Family Medicine; Referring Provider Family Medicine; Visit Provider Family Medicine
DX: Z76.89 Persons encountering health services in other specified circumstances (principal); Z00.00 Encounter for general adult medical examination without abnormal findings; E78.2 Mixed hyperlipidemia; R03.0 Elevated blood-pressure reading, without diagnosis of hypertension; G43.909 Migraine, unspecified, not intractable, without status migrainosus; M54.6 Pain in thoracic spine; Z13.1 Encounter for screening for diabetes mellitus; Z13.220 Encounter for screening for lipoid disorders; E66.9 Obesity, unspecified; G89.29 Other chronic pain; S22.49XA Multiple fractures of ribs, unspecified side, initial encounter for closed fracture
CPT/HCPCS: 36415; 80053; 80061; 83036; 84443; 85025

== ENCOUNTER 2024-09-16 12:36 | Emergency (ER) | payer OTHER, SELFPAY ==
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
[2024-09-16 13:09] VITALS: BP 173/111; PULSE 88; RESP 18; TEMP 36.7; O2SAT 97; BMI 36.3
--- NOTE | 2024-09-16 14:17 | ED.LOWEXIN ---
HPI - Extremity Injury (Lower) <Denisse Paul PA-C - Last Filed: 09/16/24 16:33> General Chief Complaint: Extremity Injury, Lower Stated Complaint: Stepped off boat and twisted ankle. Poss broken Time Seen by Provider: 09/16/24 14:17 Source: patient Mode of arrival: Family Vehicle History of Present Illness HPI Narrative: Mr. Madrid is a pleasant 39-year-old male with a past medical history of hypertension not on antihypertensives, hyperlipidemia, ADHD, chronic back pain who presents to the emergency department for right ankle injury that occurred prior to arrival. Patient was going down a ladder on his boat when he stepped on a curb wrong causing him to roll his right ankle. He felt sudden cracking and popping pain and now has pain and swelling on the lateral aspect of the ankle, he is having difficulty bearing any weight on the foot/ankle. He denies falling or any other injuries. No open wounds. No numbness tingling weakness. No medications prior to arrival. Related Data Home Medications ?Medication ?Instructions ?Recorded ?Confirmed acetaminophen 500 mg capsule 1,000 mg PO Q6H PRN 05/29/21 08/22/23 Previous Rx's ?Medication ?Instructions ?Recorded cyclobenzaprine 10 mg tablet 10 mg PO TID PRN muscle spasm #90 12/20/23 tabs gabapentin 600 mg tablet 1,200 mg (2 x 600 mg) PO BID #120 01/26/24 tabs trazodone 100 mg tablet 150 mg (1.5 x 100 mg) PO BEDTIME 01/26/24 PRN insomnia #90 tabs tramadol 50 mg tablet See Rx Instructions .Route 03/27/24 .COMPLEX #30 tabs hydrocodone 5 mg-acetaminophen 325 1 tab PO Q4-6H PRN pain #12 tabs 09/16/24 mg tablet Allergies Allergy/AdvReac Type Severity Reaction Status Date / Time bee venom protein (honey bee) Allergy Severe Anaphylaxis Verified 09/16/24 13:08 Penicillins (PENICILLINS) Allergy Unknown Verified 09/16/24 13:08 Review of Systems <Denisse Paul PA-C - Last Filed: 09/16/24 16:33> Review of Systems ROS Unobtainable: All systems reviewed & are unremarkable except as noted in HPI and below Patient History <Denisse Paul PA-C - Last Filed: 09/16/24 16:33> Medical History Elevated blood pressure reading without diagnosis of hypertension Hx of essential hypertension Facet arthropathy, thoracic Hyperlipidemia, mixed Lumbar radiculopathy HNP (herniated nucleus pulposus), thoracic Viral syndrome Vision disorder Migraines (~1995) Headache (~1995) ADHD (~1995) Fractures Chicken pox (~1995) Glaucoma (~2018) Cervical radiculopathy Piriformis syndrome of left side Surgical History Anesthesia History of shoulder surgery History of ankle surgery History of knee surgery (~2016) Family History Father Leukemia Cancer Hypertension Mother ALS (amyotrophic lateral sclerosis) Grandfather Stroke Alzheimer's disease Grandmother Stroke Grandfather Stroke Grandmother Alzheimer's disease Social History Smoking Status: Never smoker Smoking Status: Never smoker alcohol intake frequency: 0-2 drinks per day Exam <Denisse Paul PA-C - Last Filed: 09/16/24 16:33> Narrative Exam Narrative: GENERAL: 39 year old patient appears stated age. Well-developed patient, in no acute distress. HEAD: Atraumatic. Normocephalic. NECK: Trachea midline. Cervical ROM intact. CARDIOVASCULAR: Regular rate RESPIRATORY: ?Nonlabored respirations. ?Speaking in clear, full sentences. EXTREMITIES: Edema of right lateral malleolus. No open wounds. Pain with range of motion of the ankle. Tenderness to palpation of the lateral malleolus and the heel. Brisk capillary refill, strong PT and DP pulses, sensation intact to light touch. No other extremity injuries. NEURO: AOx3. ?Clear speech. ?Moves all 4 extremities appropriately with the exception of right ankle. SKIN: No rash or erythema of visible areas Initial Vital Signs Initial Vital Signs: Vital Signs Temperature 98.1 F 09/16/24 13:09 Pulse Rate 88 09/16/24 13:09 Respiratory Rate 18 09/16/24 13:09 Blood Pressure 173/111 H 09/16/24 13:09 Pulse Oximetry 97 09/16/24 13:09 Oxygen Delivery Method Room Air 09/16/24 13:09 <DO Jose Eduardo Mckeon Last Filed: 09/16/24 18:43> Initial Vital Signs Initial Vital Signs: Vital Signs Temperature 98.1 F 09/16/24 13:09 Pulse Rate 88 09/16/24 13:09 Respiratory Rate 18 09/16/24 13:09 Blood Pressure 173/111 H 09/16/24 13:09 Pulse Oximetry 97 09/16/24 13:09 Oxygen Delivery Method Room Air 09/16/24 13:09 Procedures <LIZA Cheng Last Filed: 09/16/24 16:33> Orthopedic Splinting/Casting Injury #1: Side: right Lower Extremity Injury Location: ankle Lower Extremity Immobilizer: posterior splint and stirrup splint Other Orthopedic Equipment: crutches Post splinting neuro exam: intact and no change Post splinting vascular exam: no change Placed by: Nursing Course <LIZA Cheng Last Filed: 09/16/24 16:33> Orders Ordered: ED Orders 09/16/24 13:08 XR ankle RT min 3V Stat Discontinued Medications Hydrocodone Bitart/Acetaminophen (Hydrocodone/Acet 5/325 Tablet) 1 tab PO NOW ONE Stop: 09/16/24 14:26 Last Admin: 09/16/24 14:37 Dose: 1 tab Documented By: PATRICA Ibuprofen (Ibuprofen 400 Mg Tablet) 400 mg PO NOW ONE Stop: 09/16/24 14:26 Last Admin: 09/16/24 14:37 Dose: 400 mg Documented By: PATRICA Vital Signs Vital signs: Vital Signs - 8 hr 09/16/24 13:09 09/16/24 14:43 09/16/24 14:54 Temperature 98.1 F Pulse Rate 88 85 Pulse Rate [Right Dorsalis Pedis] 78 Respiratory Rate 18 16 Blood Pressure 173/111 H 165/108 H Pulse Oximetry 97 98 Oxygen Delivery Method Room Air Room Air <DO Jose Eduardo Mckeon Last Filed: 09/16/24 18:43> Orders Ordered: ED Orders 09/16/24 13:08 XR ankle RT min 3V Stat Discontinued Medications Hydrocodone Bitart/Acetaminophen (Hydrocodone/Acet 5/325 Tablet) 1 tab PO NOW ONE Stop: 09/16/24 14:26 Last Admin: 09/16/24 14:37 Dose: 1 tab Documented By: PATRICA Ibuprofen (Ibuprofen 400 Mg Tablet) 400 mg PO NOW ONE Stop: 09/16/24 14:26 Last Admin: 09/16/24 14:37 Dose: 400 mg Documented By: PATRICA Vital Signs Vital signs: Vital Signs - 8 hr 09/16/24 13:09 09/16/24 14:43 09/16/24 14:54 Temperature 98.1 F Pulse Rate 88 85 Pulse Rate [Right Dorsalis Pedis] 78 Respiratory Rate 18 16 Blood Pressure 173/111 H 165/108 H Pulse Oximetry 97 98 Oxygen Delivery Method Room Air Room Air MDM - Extremity Injury (Lower) <Denisse Paul PA-C - Last Filed: 09/16/24 16:33> Medical Records Attestation: I reviewed the patient's medical records. Imaging Data Right Ankle X-Ray: Radiologist's Impression: PROCEDURE: XR ANKLE RT MIN 3V INDICATIONS: stepped off boat the wrong way, ankle rolled TECHNIQUE: 3 views of the ankle were acquired. COMPARISON: None. FINDINGS: Bones: There is anatomic alignment. There is a small ill-defined osseous density projecting just lateral to the talus. No significant arthropathy. Soft tissues: Significant soft tissue swelling seen especially laterally. IMPRESSION: Findings most suggestive of small avulsion fracture fragment arising from the talus laterally or possibly the lateral malleolus. Dictated by: Prosper Feldman M.D. on 09/16/2024 at 13:54 Approved by: Prosper Feldman M.D. on 09/16/2024 at 13:56 [facility] Narrative Medical decision making narrative: 39-year-old male with a past medical history of hypertension not on antihypertensives, hyperlipidemia, ADHD, chronic back pain who presents to the emergency department for right ankle injury that occurred prior to arrival. Differential diagnosis includes but isn't limited to right ankle sprain, strain, fracture, dislocation, etc. On exam patient is in no acute distress, nontoxic appearing, vital signs appropriate except for elevated blood pressure. He does have hypertension but is not currently taking medications however states it is typically in the 130s over 80s at home, blood pressure likely worsened because of ankle fracture. Physical exam reveals swollen right lateral malleolus with no open wounds, foot is neurovascularly intact. X-ray obtained in triage reveals ?findings most suggestive of small avulsion fracture fragment arising from the talus laterally or possibly the lateral malleolus. We will treat with a posterior short leg splint with stirrup, crutches, rice therapy, ibuprofen, Tylenol, hydrocodone as needed for severe pain. Discussed narcotic risks. Advised follow up with Orthopedics for further management. Patient's will be able to drive him home from the emergency department. They verbalized understanding of all information, are agreeable with the plan, all questions answered. He is stable for discharge home. Discharge Plan Departure Patient Disposition: Home Clinical Impression: Ankle fracture, right Qualifiers: Encounter type: initial encounter Fracture type: closed Qualified Code(s): S82.891A - Other fracture of right lower leg, initial encounter for closed fracture Instructions: DI for Ankle Fracture Activity Restrictions/Additional Instructions: Dear Mr. Madrid, Thank you for coming to the emergency department. Today you were evaluated for right ankle injury and your x-ray did show a small avulsion fracture. Please call to schedule an appointment with orthopedic surgery for further management and evaluation. You have been placed into a right lower leg splint. Please keep the splint clean, dry and use crutches to avoid bearing any weight on the broken ankle. Please use RICE therapy for your pain in addition to ibuprofen/acetaminophen. Rest the painful area. Ice the area of pain/swelling for at least 15 minutes, 4x a day. Compress the area of swelling using a brace, wrap, or splint if applied. Elevate the painful or swollen extremity by supporting it above the level of the heart with pillows when sitting or laying. Please take Ibuprofen (Motrin/Advil) or Acetaminophen (Tylenol) for pain. These are available over the counter. You may take Ibuprofen 600 mg every 8 hours with food for pain. You may also take Acetaminophen 650 mg every 4-6 hours for pain. Do not exceed 3000 mg of Tylenol a day as this can cause liver damage. Do not drink alcohol with either of these medications. You have been prescribed a short course of narcotic medications. These are potentially dangerous and addictive medications that should be used carefully. While on these medications you cannot drive or operate heavy machinery. Additionally, you cannot sign legal documents or perform any duties such as this. 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 Please understand that we cannot provide further refills of narcotics or controlled substances through the ED and your pain management will need to be through your Primary Care Provider Please follow up with your primary care doctor within the next 2-3 days for ER follow-up. (If you do not have a PCP you can call [phone]. ?to schedule an appointment with an [facility] Primary Care Provider) IF YOU DEVELOP ANY NEW OR WORSENING SYMPTOMS, RETURN TO THE ER! Please read the attached instructions, they highlight more specific treatments and interventions for you at home. Thank you for letting me participate in your care, Denisse Paul PA-C Prescriptions: New hydrocodone-acetaminophen 5-325 mg tablet 1 tab PO Q4-6H PRN (Reason: pain) Qty: 12 0RF No Action cyclobenzaprine 10 mg tablet 10 mg PO TID PRN (Reason: muscle spasm) Qty: 90 3RF Rx Instructions: THIS CAN BE SEDATING USE FOR MUSCLE SPASM OR TO HELP WITH SLEEP. IF USES DURING DAY BE AWARE OF SEDATION gabapentin 600 mg tablet 1,200 mg PO BID Qty: 120 12RF trazodone 100 mg tablet 150 mg PO BEDTIME PRN (Reason: insomnia) Qty: 90 2RF tramadol 50 mg tablet See Rx Instructions .ROUTE .COMPLEX Qty: 30 0RF Rx Instructions: Take 1 tablet by mouth at bedtime as needed for pain acetaminophen 500 mg capsule 1,000 mg PO Q6H PRN Referrals: Wilian Lynn MD [Physician, Orthopedic Surgery] Referral Note: 39 yo male, right ankle fracture, seen in ED 09/16/24 Paige Darling DO [Primary Care Provider, Family Practice] Stand Alone Forms: Patient Portal/API ED Sign-out <Noni Espinoza DO - Last Filed: 09/16/24 18:43> Cosign ED Attending Joselito Attestation: I was immediately available in the department for consultation.
[2024-09-16] MEDS: IBUPROFEN 400 MG TABLET PO (14:37)
[2024-09-16] MEDS: HYDROCODONE/ACET 5/325 TABLET 1 TAB PO (14:37)
[2024-09-16 14:43] VITALS: PULSE 78
[2024-09-16 14:54] VITALS: BP 165/108; PULSE 85; RESP 16; O2SAT 98
== END 2024-09-16 14:55 | disposition home or self-care (01) ==
PROVIDERS: Emergency Provider Physician Assistant; Family Provider Family Medicine; PCP Family Medicine
DX: S82.891A Other fracture of right lower leg, initial encounter for closed fracture (principal); W10.1XXA Fall (on)(from) sidewalk curb, initial encounter
CPT/HCPCS: 73610; 99283

== ENCOUNTER → 2024-10-24 15:36 | Outpatient (CLI) | payer OTHER, SELFPAY ==
--- NOTE | 2024-10-24 15:51 | DI.RAD.S_ITS ---
PROCEDURE: XR ANKLE LT MIN 3V INDICATIONS: CUT TECHNIQUE: 3 views of the ankle were acquired. COMPARISON: [facility], CR, XR ANKLE RT MIN 3V, 09/19/2024, 8:17. FINDINGS: Bones: There are no osseous abnormalities. Tibiotalar and talocalcaneal joints: Normal in width and alignment without arthritic change. Soft tissues: No soft tissue swelling, calcification or mass. IMPRESSION: Normal ankle Dictated by: Alcides Pierre M.D. on 10/25/2024 at 10:48 Approved by: Alcides Pierre M.D. on 10/25/2024 at 10:48
== END ==
PROVIDERS: PCP Family Medicine; Referring Provider Orthopaedic Surgery; Visit Provider Orthopaedic Surgery
DX: L08.9 Local infection of the skin and subcutaneous tissue, unspecified (principal)
CPT/HCPCS: 73610

== ENCOUNTER → 2024-10-25 16:25 | Outpatient (CLI) | payer OTHER, SELFPAY ==
--- NOTE | 2024-10-25 16:29 | DI.RAD.S_ITS ---
PROCEDURE: XR FOOT LT MIN 3V INDICATIONS: FOOT INFECTION TECHNIQUE: 3 views of the foot were acquired. COMPARISON: None. FINDINGS: Bones: No fractures or dislocations. No suspicious bony lesions. Degenerative changes of the 1st metatarsophalangeal joint. No suspicious osseous erosions or cortical destruction. Soft tissues: No tibiotalar joint effusion. Achilles tendon appears normal. Mild soft tissue swelling of the left forefoot. No soft tissue gas. IMPRESSION: Mild soft tissue swelling of the left forefoot without soft tissue gas or underlying osseous abnormalities. Although no bony erosions are identified, radiographic evaluation is relatively insensitive in the acute phase of osteomyelitis and may not demonstrate radiographic findings for approximately 15 days. If acute osteomyelitis is of clinical concern, three-phase nuclear medicine regional bone scan or MRI is recommended. Dictated by: Mathew Frank M.D. on 10/26/2024 at 9:34 Approved by: Mathew Frank M.D. on 10/26/2024 at 9:36
== END ==
LOC: RAD 16:27
PROVIDERS: PCP Family Medicine; Referring Provider Family Medicine; Visit Provider Family Medicine
DX: L08.9 Local infection of the skin and subcutaneous tissue, unspecified (principal); M79.89 Other specified soft tissue disorders
CPT/HCPCS: 73630